=== PATIENT | female | born 1935 | race Caucasian/White ===

== ENCOUNTER 2019-03-16 15:04 | Inpatient (IN) ==
[2019-03-16] MEDS ORDERED: DUONEB (A & A) INH ONE (15:40)
--- NOTE | 2019-03-16 15:44 | PROVIDER DOCUMENTATION ---
HPI-Respiratory General - General Stated Complaint: LOW OXYGEN Time Seen by Provider: 03/16/19 15:23 Source: patient, family (daughters at bedside) Allergies/Adverse Reactions: Patient Allergies Allergy/AdvReac Type Severity Reaction Status Date / Time No Known Allergies Allergy Verified 03/16/19 16:21 Home Medications: Home Medication List Medication Instructions Recorded Confirmed Last Taken Type Omeprazole 20 mg PO QHS 07/01/12 03/16/19 03/15/19 History Metformin [Glucophage] 500 mg PO BID #0 09/23/13 03/16/19 03/16/19 Rx Aspirin 81 mg PO DAILY 05/13/15 03/16/19 03/16/19 History Atorvastatin Calcium [Lipitor] 40 mg PO HS 05/13/15 03/16/19 1 Day Ago History ~03/15/19 Clopidogrel [Plavix] 75 mg PO DAILY 05/13/15 03/16/19 03/16/19 History Metoprolol Succinate 100 mg PO BID 05/13/15 03/16/19 03/16/19 History Amlodipine Besylate [Norvasc] 5 mg PO BID 09/13/18 03/16/19 03/16/19 History Valsartan [Diovan] 0.5 tab PO QAM 09/13/18 03/16/19 03/16/19 History Lorazepam 0.5 tab PO BID 03/10/19 03/16/19 03/16/19 History Cephalexin [Keflex] 500 mg PO 4XDAY #20 cap 03/14/19 03/16/19 03/16/19 Rx Hydrocodone/Acetaminophen [[place] 1 ea PO Q4H PRN PRN #30 tab 03/14/19 03/16/19 03/16/19 Rx 7.5-325 Tablet] - History of Present Illness-Resp Nature of Presenting Problem: 83 YO F pmh for COPD, lung CA with mets to bone and recent ortho surgery in right femur 3 days ago presents to ED by EMS for low o2. Pt states home health nurse came to check on her for a dressing change, but when she checked her vitals, she had low o2 and called EMS. Pt states she cannot recall what the oxygen level reading was. Pt is currently denying cough, sore throat, fever, n/v, urinary complaints, or oozing from wounds. Quality of Pain: reports: other (pain to right leg consistent with recent surgery. denies pain to chest or abdomen) Severity in ED: reports: mild Onset/Duration: reports: 1-3 hours ago (for hypoxia) Timing: reports: still present Context: reports: other (hx of COPD, recent surgery) Cough Quality/Degree: reports: no cough Episode Frequency: occasional episodes Current Respiratory Medication Therapy: Initiated albuterol/atrovent inhale Modifying Factors: improves with: oxygen Associated Symptoms: reports: denies symptoms. denies: cough, dizziness, fe vito/chills, flu-like symptoms, headache, hurts to breathe, hyperventilating, lightheadedness, shortness of breath, short of breath, sore throat, wheezing Recently seen or treated by another doctor?: Yes (surgery 3 days ago) Review of Systems - Adult - REVIEW OF SYSTEMS - ADULT Constitutional: denies: chills, fever Eyes: reports: no symptoms reported Ears, Nose, Mouth & Throat: reports: no symptoms reported Cardiovascular: denies: chest pain, palpitations Respiratory: denies: cough, dyspnea on exertion, hemoptysis, pleurisy, shortness of breath, wheezing Gastrointestinal: denies: abdominal pain, constipation, diarrhea, nausea, poor appetite Genitourinary: reports: no symptoms reported Musculoskeletal: reports: no symptoms reported Integumentary: reports: no symptoms reported Neurological: denies: dizziness/vertigo, seizure, syncope Past History - Adult - PAST MEDICAL HISTORY-ADULT Review of Records: reports: Old Records Reviewed, Social history reviewed & non- contributory. Major Childhood Illnesses: reports: denies history Cardiovascular: reports: A-Fib, HTN, heart valve problem (replaced) Respiratory: reports: COPD Neurological: reports: CVA (2008), stroke deficits (mild left sided weakness) Endocrine/Immune: reports: Diabetes - PRIOR SURGERIES/PROCEDURES Surgical/Procedure History: reports: appendectomy, bowel surgery (partial colectomy), orthopedic (extremity) (ej placed 2/2 to mets to bone from lung CA) , other (heart valve replacement) - FAMILY HISTORY Family History: reviewed, not pertinent Physical Exam-General - PHYSICAL EXAM-ADULT Initial Vital Signs Reviewed: Yes - CONSTITUTIONAL General Appearance: appears well, alert, no apparent distress - EYES Eyes: PERRL/EOMI, pink conjunctivae - HEAD, EARS, NOSE, MOUTH & THROAT HENMT: normocephalic/atraumatic, moist mucous membranes - NECK Neck: full range of motion, supple - RESPIRATORY Respiratory: lungs clear, normal breath sounds, no respiratory distress, no accessory muscle use - CARDIOVASCULAR Cardiovascular: no edema, irregularly irregular - GASTROINTESTINAL (ABDOMEN) Abdominal Exam: normal bowel sounds, non tender, soft - SKIN Integumentary: normal color, normal turgor, warm/dry - NEUROLOGIC Neurologic: grossly normal, sensory deficit (left sided residual weakness from CVA recent right femur surgery (ortho)) - PSYCHIATRIC Psych/Mental Status: normal mood/affect, normal thought content, normal thought process, oriented x 3 (pt oriented) - HEART Score HEART Score: History: Slightly Suspicious HEART Score: ECG: Normal HEART Score: Age: > or = 65 Years HEART Score: Risk Factors for Atherosclerotic Disease: 1 or 2 Risk Factors HEART Score: Troponin: < or = Normal Limit Total HEART Score:: 3 Progress - PLAN OF CARE/RESULTS Progress/Plan/Lab Results: Vital Signs - 8 hr 03/16/19 15:35 03/16/19 15:37 03/16/19 15:43 Temperature 98.8 F Pulse Rate 99 H 96 H 75 Respiratory Rate 16 18 20 Blood Pressure 122/64 122/64 122/64 O2 Sat by Pulse Oximetry 87 L 90 L 94 L 03/16/19 15:45 03/16/19 15:46 03/16/19 16:00 Temperature Pulse Rate 101 H 90 107 H Respiratory Rate 17 26 H 14 Blood Pressure 104/60 O2 Sat by Pulse Oximetry 95 94 L 95 03/16/19 16:02 03/16/19 16:15 03/16/19 16:17 Temperature Pulse Rate 99 H 100 H 84 Respiratory Rate 16 15 14 Blood Pressure 120/56 O2 Sat by Pulse Oximetry 95 96 96 03/16/19 16:30 03/16/19 16:32 03/16/19 16:59 Temperature 98 F Pulse Rate 88 87 101 H Respiratory Rate 14 13 20 Blood Pressure 119/71 119/71 O2 Sat by Pulse Oximetry 95 95 88 L 03/16/19 17:02 03/16/19 17:32 03/16/19 18:00 Temperature Pulse Rate 105 H 85 116 H Respiratory Rate 14 17 17 Blood Pressure 116/73 115/73 O2 Sat by Pulse Oximetry 89 L 88 L 85 L 03/16/19 18:02 03/16/19 18:15 03/16/19 18:56 Temperature Pulse Rate 105 H 99 H 113 H Respiratory Rate 16 22 23 Blood Pressure 106/67 O2 Sat by Pulse Oximetry 85 L 89 L 86 L 03/16/19 19:00 03/16/19 19:15 03/16/19 19:30 Temperature Pulse Rate 100 H 131 H 120 H Respiratory Rate 22 19 22 Blood Pressure O2 Sat by Pulse Oximetry 87 L 87 L 86 L 03/16/19 19:45 Temperature Pulse Rate 111 H Respiratory Rate 19 Blood Pressure 106/82 O2 Sat by Pulse Oximetry 87 L Laboratory Results - last 24 hr 03/16/19 03/16/19 03/16/19 15:45 15:45 15:45 WBC 11.29 H RBC 3.22 L Hgb 9.0 L Hct 27.6 L MCV 85.7 MCH 28.0 MCHC 32.6 L RDW Std Deviation 14.9 H Plt Count 225 MPV 9.5 Immature Gran % (Auto) 0.2 Neut % (Auto) 71.9 Lymph % (Auto) 9.9 L [place] % (Auto) 16.7 H Eos % (Auto) 1.1 Baso % (Auto) 0.2 Immature Gran # (Auto) 0.02 Neut # (Auto) 8.13 H Lymph # (Auto) 1.12 L [place] # (Auto) 1.88 H Eos # (Auto) 0.12 Baso # (Auto) 0.02 D-Dimer, Quantitative Sodium 133 L Potassium 4.6 Chloride 94 L Carbon Dioxide 24 L Anion Gap 15 BUN 25 H Creatinine 0.9 Estimated GFR/1.73 m2 60 BUN/Creatinine Ratio 28 Glucose 190 H Calculated Osmolality 276 Calcium 8.7 L Total Bilirubin 0.44 AST 19 ALT 13 Alkaline Phosphatase 96 Troponin T < 0.010 Total Protein 5.9 L Albumin 3.6 Globulin 2.3 Albumin/Globulin Ratio 1.6 Urine Source Urine Color Urine Turbidity Urine pH Ur Specific [place] Urine Protein Ur Glucose (Stick) Ur Ketones (Stick) Urine Blood Urine Nitrite Urine Bilirubin Urobilinogen Dipstick Urine Leukocytes Urine WBC (Auto) Urine RBC (Auto) U Epithel Cells (Auto) Urine Bacteria (Auto) Urine Crystals Small Round Cells Urine Casts Urine Yeast-like Cells 03/16/19 03/16/19 15:45 17:54 WBC RBC Hgb Hct MCV MCH MCHC RDW Std Deviation Plt Count MPV Immature Gran % (Auto) Neut % (Auto) Lymph % (Auto) [place] % (Auto) Eos % (Auto) Baso % (Auto) Immature Gran # (Auto) Neut # (Auto) Lymph # (Auto) [place] # (Auto) Eos # (Auto) Baso # (Auto) D-Dimer, Quantitative 2.09 H Sodium Potassium Chloride Carbon Dioxide Anion Gap BUN Creatinine Estimated GFR/1.73 m2 BUN/Creatinine Ratio Glucose Calculated Osmolality Calcium Total Bilirubin AST ALT Alkaline Phosphatase Troponin T Total Protein Albumin Globulin Albumin/Globulin Ratio Urine Source CLEAN CATCH Urine Color YELLOW Urine Turbidity TURBID Urine pH 6.0 Ur Specific [place] 1.034 Urine Protein 70 A Ur Glucose (Stick) NEGATIVE Ur Ketones (Stick) TRACE A Urine Blood TRACE A Urine Nitrite NEGATIVE Urine Bilirubin NEGATIVE Urobilinogen Dipstick 4 A Urine Leukocytes LARGE A Urine WBC (Auto) TNTC A Urine RBC (Auto) <10 U Epithel Cells (Auto) >10 A Urine Bacteria (Auto) NEGATIVE Urine Crystals Not Reportable Small Round Cells Not Reportable Urine Casts Not Reportable Urine Yeast-like Cells NONE SEEN Orders Category Date Time Status [facility] Routine AdmDCTranf 03/16/19 20:38 Active Activity - Up with Assistance ORDERED Care 03/16/19 20:38 Active FSBS/Accucheck Result AC + HS Care 03/16/19 20:38 Active Intake and Output-Strict ORDERED Care 03/16/19 20:38 Active Nursing- MD Consult Request ROUTINE Care 03/16/19 20:38 Active Vital Signs Order Q6-HR ASSESS Care 03/16/19 20:38 Active Z-Document. for Tele Applied ORDERED Care 03/16/19 20:38 Completed Physician/Provider Consults Routine Cons 03/17/19 08:00 Ordered Diabetic Diet Diet 03/16/19 20:38 Active CHEST-1 VIEW [RAD] Stat Exams 03/16/19 15:[address] ANGIOGRM PULMONARY ARTERIES [CT] Stat Exams 03/16/19 16:58 Completed BASIC METABOLIC PANEL [CHEM] Routine Lab 03/17/19 06:00 Ordered CBC WITH DIFF [HEME] Routine Lab 03/17/19 06:00 Ordered CBC WITH ELECTRONIC DIFF [HEME] Stat Lab 03/16/19 15:45 Completed COMPREHENSIVE METABOLIC PANEL [CHEM] Stat Lab 03/16/19 15:45 Completed D-DIMER [COAG] Stat Lab 03/16/19 15:45 Completed FERRITIN Routine Lab 03/17/19 06:00 Ordered FOLATE Routine Lab 03/17/19 06:00 Ordered OCCULT BLOOD DIAGNOSTIC [STOOL] Stat Lab 03/16/19 19:59 Uncollected TOTAL IRON [CHEM] Routine Lab 03/17/19 06:00 Ordered TROPONIN T Stat Lab 03/16/19 15:45 Completed TSH Routine Lab 03/17/19 06:00 Ordered UA NIMS W/REFLEX CULT [URINALYSIS] Stat Lab 03/16/19 17:54 Completed UIBC W TOTAL IRON [CHEM] Routine Lab 03/17/19 06:00 Ordered URINE CULTURE [RM] Routine Lab 03/16/19 18:39 Received URINE MANUAL MICROSCOPIC [URINALYSIS] Stat Lab 03/16/19 17:54 Completed VITAMIN B12 Routine Lab 03/17/19 06:00 Ordered ATORVAstatin [Lipitor] Med 03/16/19 21:00 Active 40 mg PO HS Albuterol 2.5MG/Ipratrop 0.5MG [Duoneb (A & A)] Med 03/16/19 15:40 Discontinued 3 ml INH NOW ONE Albuterol 2.5MG/Ipratrop 0.5MG [Duoneb (A & A)] Med 03/16/19 22:00 Active 3 ml INH RTQ6H Amlodipine [Norvasc] Med 03/16/19 21:00 Active 5 mg PO BID Aspirin Med 03/17/19 09:00 Active 81 mg PO DAILY CefTRIAXONE [Rocephin] 1 gm Med 03/16/19 20:38 Active 0.9% Sodium Chloride Inj [Ns] 50 ml IV Q24H Clopidogrel [Plavix] Med 03/17/19 09:00 Active 75 mg PO DAILY Enoxaparin [Lovenox] Med 03/16/19 20:38 Active 40 mg SUBQ Q24H Furosemide [Lasix] Med 03/16/19 19:51 Discontinued 20 mg IV NOW ONE Hydrocodone/APAP 7.5 mg/325 mg [[place]-7.5] Med 03/16/19 19:52 Active 1 each PO Q4H PRN PRN Insulin Lispro [Humalog] Med 03/16/19 21:00 Active See Protocol SUBQ 0700,1100,1600,2100 Lorazepam [Ativan] Med 03/16/19 21:00 Active 0.5 mg PO BID Metoprolol Succinate E.r. [Toprol Xl] Med 03/16/19 21:00 Pending 100 mg PO BID Omeprazole [Prilosec] Med 03/16/19 21:00 Active 20 mg PO QHS Ondansetron [Zofran] Med 03/16/19 20:38 Active 4 mg IV Q4H PRN PRN Valsartan [Diovan] Med 03/17/19 09:00 Pending DOSE mg PO QAM Aerosol Treatments Routine Oth 03/16/19 15:41 Completed Aerosol Treatments Routine Oth 03/16/19 20:38 Active Aerosol Treatments Stat Oth 03/16/19 15:41 Completed Aerosol Treatments Stat Oth 03/16/19 20:38 Active Telemetry [OM.EQ] Routine Oth 03/16/19 20:38 Active EKG [EKG] Routine Ther 03/17/19 08:00 Ordered EKG [EKG] Stat Ther 03/16/19 15:40 Draft Transfer/Admit Order [TRANSFER] Routine Transfer 03/16/19 19:54 Completed not currently concerned for cardiac pathology or infection. wounds healing well from recent surgery. Hx of COPD. labs ok. satting at 86-88 % on RA. will admit for home o2 set up. Result Diagrams: 03/16/19 15:45 03/16/19 15:45 - REASSESSMENT Reassessment #1 Time Reassessed: 16:46 Status: improving (pt with clear lung sounds. CXR wnl, labs ok. Will remove o2 and monitor. pt AAOx3) Reassessment #2 Time Reassessed: 19:37 Status: unchanged - EKG 1 Time of EKG reading by physician:: 15:28 EKG Read and Signed by:: Abdoulaye Salcedo EKG Interpretation (*Must complete 3 of following elements*): Abnormal Rate: 92 Rhythm: irregularly irregular [place]: normal QRS: normal (afib, no p waves) ST Wave: non-specific ST changes Prior EKG Comparison: unchanged from prior (no sig changes from 09/16/18) - XRAY 1 XRAY Study: Chest Impression: See EMR Report (HISTORY: hypoxia TECHNIQUE: Chest single view COMPARISON: 12/03/2018 FINDINGS: The lungs are well expanded. There is scarring in the mid right lung. The heart is enlarged. The vessels are not distended. There are no infiltrates. No effusion identified. IMPRESSION: Cardiomegaly Electronically signed by Tyson Velasquez 03/16/2019 4:07 PM) - CONSULTS/PCP/HOSPITALIST Notification #1 *Consult/PCP/Hospitalist*: Dr. Spence Time Discussed: 19:40 Consult Disposition: Will see in ED Departure - Departure Date of Disposition Decision: 03/16/19 Time of Disposition Decision: 19:32 DIAGNOSIS: Hypoxia Disposition: ADMITTED INPATIENT Certified Medical Emergency: Emergent Condition: Stable - Critical Care Note This patient required my direct & personal management of CC.: No Attestation - Physician/ GLADIS Attestation The physician spent face to face time with patient:: Yes Advanced Practice Provider documentation review:: Supervising physician onsite and consulted in the evaluation and care of this patient. The physician did have a face to face encounter with the patient.
[2019-03-16 15:58] LABS: BASO# 0.02 X1000 (0.0-0.2); BASO% 0.2 % (0.0-0.8); EOS# 0.12 X1000 (0.0-0.7); EOS% 1.1 % (0.0-10.0); HEMATOCRIT 27.6 % (37.0-47.0); IMM GRAN# 0.02 X1000 (0.0-0.04); IMM GRAN% 0.2 % (0.0-0.5); LYMPH# 1.12 X1000 (1.2-3.4); LYMPH% 9.9 % (20.5-51.1); MCHC 32.6 g/dL (33-37); MCV 85.7 FL (81-99); MONO# 1.88 X1000 (0.11-0.59); MONO% 16.7 % (1.7-9.3); MPV 9.5 FL (7.4-10.4); NEUT# 8.13 X1000 (1.4-6.5); NEUT% 71.9 % (42.2-75.2); PLT 225 X1000 (130-400); RBC 3.22 XMIL (4.2-5.4); RDW 14.9 % (11.5-14.5); WBC 11.29 X1000 (4.8-10.8)
--- NOTE | 2019-03-16 16:10 | Diag Imaging Result Doc PS360 ---
EXAM: CHEST-1 VIEW HISTORY: hypoxia TECHNIQUE: Chest single view COMPARISON: 12/03/2018 FINDINGS: The lungs are well expanded. There is scarring in the mid right lung. The heart is enlarged. The vessels are not distended. There are no infiltrates. No effusion identified. IMPRESSION: Cardiomegaly Electronically signed by Tyson Velasquez 03/16/2019 4:07 PM
[2019-03-16 16:17] LABS: ALB/GLOB RATIO 1.6; ALBUMIN 3.6 g/dL (3.5-5.0); CALCIUM 8.7 mg/dL (8.8-10.2); CREATININE 0.9 mg/dL (0.5-0.9); POTASSIUM 4.6 mmol/L (3.5-5.1); TOTAL BILIRUBIN 0.44 mg/dL (0.20-1.00); TOTAL PROTEIN 5.9 g/dL (6.3-8.3)
--- NOTE | 2019-03-16 17:36 | EKG Report ---
Test Performed on : 03/16/2019 3:21:10 PM Test Reason : CP Blood Pressure : / mmHG Vent. Rate : 092 BPM Atrial Rate : 288 BPM P-R Int : 000 ms QRS Dur : 074 ms QT Int : 338 ms P-R-T Axes : 000 -05 065 degrees QTc Int : 417 ms Atrial fibrillation. Nonspecific ST abnormality Abnormal ECG When compared with ECG of 13-SEP-2018 10:42, T wave amplitude has increased in Anterior leads Unconfirmed Result
[2019-03-16 18:13] LABS: URINE SOURCE CLEAN CATCH
[2019-03-16 18:17] LABS: BILIRUBIN URINE NEGATIVE (NEGATIVE); BLOOD URINE TRACE (NEGATIVE); COLOR YELLOW; GLUCOSE URINE NEGATIVE (NEGATIVE); KETONE URINE TRACE mg/dL (NEGATIVE); LEUKOCYTES URINE LARGE (NEGATIVE); NITRITE URINE NEGATIVE (NEGATIVE); PROTEIN URINE 70 mg/dL (NEGATIVE); SP GRAVITY URINE 1.034; TURBIDITY URINE TURBID (CLEAR); UROBILINOGEN URINE 4 mg/dL (NORMAL)
[2019-03-16 18:36] LABS: UR EPITHELIAL CELLS >10 /HPF (<10); URINE BACTERIA NEGATIVE /HPF; URINE RBC <10 /HPF (<10); URINE WBC TNTC /HPF (<10)
[2019-03-16 18:38] LABS: URINE YEAST NONE SEEN
--- NOTE | 2019-03-16 19:00 | Diag Imaging Result Doc PS360 ---
EXAM: CT ANGIOGRM PULMONARY ARTERIES HISTORY: hypoxia TECHNIQUE: CT chest with intravenous contrast. Pulmonary two protocol with MIP images. COMPARISON: 09/09/2018 FINDINGS: No pleural effusions. The heart is enlarged and there is a small to moderate pericardial effusion measuring 12 mm posteriorly. No aortic aneurysm or dissection. Normal opacification of the pulmonary arteries and their major branches. There are several calcified right hilar nodes with scattered granuloma. There is scarring in the mid right lung. No consolidation. No bronchiectasis. There is vascular distention. Tiny nonspecific densities measuring only 1 to 2 mm scattered in the lungs. IMPRESSION: 1.No pulmonary emboli 2.Cardiomegaly with pericardial effusion and pulmonary edema 3.Scarring in the mid right lung This exam was performed using automated exposure control, adjustment of mA or kV according to patient size, and/or use of iterative reconstruction technique. Electronically signed by Tyson Velasquez 03/16/2019 6:57 PM
[2019-03-16] MEDS ORDERED: LASIX IV ONE (19:51)
[2019-03-16] MEDS ORDERED: LOVENOX SUBQ SCH (20:38)
[2019-03-16] MEDS ORDERED: ZOFRAN IV PRN (20:38)
[2019-03-16] MEDS ORDERED: TOPROL XL PO SCH (21:00)
[2019-03-16] MEDS ORDERED: NORVASC PO SCH (21:00)
[2019-03-16] MEDS: ROCEPHIN 1 GM in NS 50 ML IV SCH (21:30)
[2019-03-16] MEDS: PRILOSEC PO SCH (21:31)
[2019-03-16] MEDS: NORCO-7.5 PO PRN (21:31)
[2019-03-16] MEDS: LIPITOR PO SCH (21:32)
[2019-03-16] MEDS: DUONEB (A & A) INH SCH (22:00)
[2019-03-16] MEDS: ATIVAN PO SCH (23:50)
[2019-03-16] MEDS: HUMALOG SUBQ SCH (23:50)
[2019-03-17] MEDS: NORCO-7.5 PO PRN ×4 (03:19→21:37)
[2019-03-17] MEDS: DUONEB (A & A) INH SCH ×3 (03:39→22:43)
--- NOTE | 2019-03-17 05:42 | HISTORY AND PHYSICAL ---
CHIEF COMPLAINT: Low oxygen. HISTORY OF PRESENT ILLNESS: Ms. Branham is an 83-year-old female with a past medical history of COPD, lung cancer status post radiation and recent metastases to the bone with a resection of her right femur with ej placement 3 days ago. Home Health had come out and checked the patient and noted that her oxygen saturation was low. They changed the dressing and her blood pressure was low as well so they told her to come into the emergency room. She has no cough, sore throat, fever, nausea, vomiting, urinary complaints. The wounds are clean, dry and intact. On arrival, she was hypoxic but denied any overt shortness of breath. She is now saturating well, resting comfortably on 4 L nasal cannula. We will continue to monitor her and wean this. Her chest x-ray showed cardiomegaly that was increased from previous scans. A pulmonary arteriogram was also obtained. It showed no pulmonary edema. However, it did show cardiomegaly with a pericardial effusion measuring around 12 mm posteriorly as well as some pulmonary edema. The daughter states that she has had pericardial effusion in the past. At any rate, we will consult Cardiology. PAST MEDICAL HISTORY: COPD, diabetes mellitus type 2, aortic valve replacement, colon resection, lung cancer with radiation, now recent metastases to the bone, chronic atrial fibrillation. PREVIOUS SURGICAL HISTORY: Appendectomy, tonsillectomy, right femur resection with ej implantation. SOCIAL HISTORY: No current tobacco, alcohol or illicit drugs. She quit smoking in 1995. FAMILY HISTORY: Mother had a stroke and coronary artery disease. Unsure of the father's history. ALLERGIES: No known drug allergies. HOME MEDICATIONS: Keflex 500 mg p.o. 4 times daily, metformin 500 mg p.o. b.i.d., amlodipine 5 mg p.o. b.i.d., aspirin 81 mg p.o. daily, atorvastatin 40 mg p.o. at bedtime, Plavix 75 mg p.o. daily, [place] 7.5/325 q.4 p.r.n., lorazepam 0.5 mg p.o. b.i.d., metoprolol 100 mg extended release p.o. b.i.d., omeprazole 20 mg p.o. daily, valsartan 80 mg q.a.m. REVIEW OF SYSTEMS: Fourteen-point review of systems conducted with the patient. She denies complaint at this time. Pertinent positives listed above in the HPI. PHYSICAL EXAMINATION: VITAL SIGNS: Temperature 98.6, pulse 112, respirations 16, blood pressure 106/53, oxygen saturation 100% on 4 L nasal cannula. GENERAL: Pale-appearing 83-year-old female resting comfortably. She is in no acute distress. She is alert and oriented times 3. Daughter is at bedtime. HEENT: Head is atraumatic, normocephalic. Pupils equal, round, reactive to light. Extraocular eye movement is intact. Sclerae are anicteric. Conjunctiva is pale. Oral mucosa is moist. NECK: Supple. No JVD. No thyromegaly. Trachea is midline. No cervical lymphadenopathy. CARDIAC: S1, S2 appreciated. No murmurs, gallops, rubs. It is irregularly irregular. LUNGS: Mild expiratory wheezing. No rhonchi, wheezes, rales. Symmetric rise and fall with respirations. ABDOMEN: Soft, nondistended, nontender. Bowel sounds present all 4 quadrants, normoactive. No pulsatile mass. No organomegaly. EXTREMITIES: No clubbing, cyanosis or edema. Two-plus pedal pulses bilaterally. INTEGUMENTARY: Clean, dry and intact. Three incisions noted on right upper leg clean, dry and intact. Dressings are also well maintained. MUSCULOSKELETAL: Patient complains of pain in right extremity at the surgical site. Decreased range of motion in this extremity. All other extremities have full range of motion. NEUROLOGICAL: Alert and oriented times 3. Cranial nerves 2 through 12 grossly intact. DIAGNOSTIC DATA: For chest x-ray and CT scan, please see HPI. EKG shows atrial fibrillation with a rate of 92. LABORATORY DATA: WBC 11.29. Hemoglobin 9. Hematocrit 27.6. Platelet count 225. Sodium 133. Potassium 4.6. Chloride 94. Carbon dioxide 24. BUN 25. Creatinine 0.9. Glucose 190. Urine was a contaminated sample. However, it was leukocyte esterase positive with too numerous to count WBCs, but again, greater than 10 epithelial cells. ASSESSMENT AND PLAN: 1. Probable chronic obstructive pulmonary disease exacerbation. We will give Rocephin 1 g IV q.24 hours, DuoNebs. Patient did also have some pulmonary edema noted on the CT scan, gave 20 of Lasix in the emergency room. On reassessment, her wheezing had resolved. We will not continue steroids. 2. Pericardial effusion, aware. Patient does not have any signs or symptoms of tamponade. She does not have any type of friction rub. We will consult Cardiology. However, she is stable. 3. Hyperlipidemia. Continue statin. 4. Anemia. This is likely acute blood loss related to her surgery 3 days ago. It could be a cause for her shortness of breath. Her hemoglobin and hematocrit were 9 and 27.6. On last check, they were 11.5 and 35.5, so a fairly large drop. We will type and screen the patient, recheck hemoglobin and hematocrit this morning. If the patient's shortness of breath does not resolve, we will consider transfusing 1 unit of packed red blood cells. 5. Lung cancer with metastases to the bone, aware. Patient is going to undergo radiation which is set up outpatient. Further recommendations per patient clinical course. Dictated by PEPITO Samuel for Nader Spence MD I have performed a face to face diagnostic evaluation. Labs/ Xrays- reviewed. Exam- Chest- rhonchi, CV- regular. A/P - COPD Exacerbation- Admit, Duo nebs,, IV ABX Dr. Spence cc: PEPITO Samuel MD Lindsay E. Smith, MD MTDD
[2019-03-17] MEDS: HUMALOG SUBQ SCH ×4 (06:40→21:00)
[2019-03-17 07:20] LABS: BASO# 0.02 X1000 (0.0-0.2); BASO% 0.2 % (0.0-0.8); EOS# 0.07 X1000 (0.0-0.7); EOS% 0.8 % (0.0-10.0); HEMATOCRIT 26.8 % (37.0-47.0); HEMOGLOBIN 8.6 g/dL (12.0-16.0); LYMPH% 7.8 % (20.5-51.1); MCH 27.5 PG (27-31); MCHC 32.1 g/dL (33-37); MCV 85.6 FL (81-99); MONO# 1.37 X1000 (0.11-0.59); MONO% 15.3 % (1.7-9.3); MPV 9.6 FL (7.4-10.4); NEUT# 6.77 X1000 (1.4-6.5); NEUT% 75.9 % (42.2-75.2); PLT 217 X1000 (130-400); RBC 3.13 XMIL (4.2-5.4); RDW 14.7 % (11.5-14.5); WBC 8.93 X1000 (4.8-10.8)
[2019-03-17 07:25] LABS: AGAP 12; BUN 20 mg/dL (8-22); CALCIUM 8.4 mg/dL (8.8-10.2); CHLORIDE 96 mmol/L (98-107); COSMO 271; CREATININE 0.7 mg/dL (0.5-0.9); ESTIMATED GFR > 60; GLUCOSE 136 mg/dL (70-104); IRON SATURATION 9 %; SODIUM 133 mmol/L (136-145); TCO2 25 mmol/L (25-35); TIBC 270 ug/dL; TOTAL IRON 25 ug/dL (49-151); UNBOUND IRON 245 ug/dL (112-346)
--- NOTE | 2019-03-17 07:47 | EKG Report ---
Test Performed on : 03/17/2019 07:02:11 AM Test Reason : chest pain Blood Pressure : / mmHG Vent. Rate : 113 BPM Atrial Rate : 133 BPM P-R Int : 000 ms QRS Dur : 094 ms QT Int : 286 ms P-R-T Axes : 000 -03 081 degrees QTc Int : 392 ms Atrial fibrillation. with rapid ventricular response. with premature ventricular or aberrantly conduc matt complexes. Anterior infarct , age undetermined Abnormal ECG When compared with ECG of 16-MAR-2019 15:21, (Unconfirmed) No significant change was found Confirmed by Joel TURNER, Fidel Sidhu ([id number]) on 03/17/2019 8:57:56 AM
[2019-03-17 07:58] LABS: TSH 1.15 uIUmL (0.27-4.20)
[2019-03-17] MEDS ORDERED: DIOVAN PO SCH (09:00)
[2019-03-17] MEDS: LOPRESSOR PO SCH ×2 (10:06→21:37)
[2019-03-17] MEDS: MIRALAX PO SCH ×2 (10:06→21:38)
[2019-03-17] MEDS: ATIVAN PO SCH ×2 (10:07→21:38)
[2019-03-17] MEDS: PLAVIX PO SCH (10:07)
[2019-03-17] MEDS: ASPIRIN PO SCH (10:07)
--- NOTE | 2019-03-17 12:34 | CARDIOLOGY CONSULTATION ---
DATE: 03/17/2019 CHIEF COMPLAINT ON PRESENTATION: Apparently dyspnea, abnormal laboratories. HISTORY OF PRESENT ILLNESS: Ms. Branham is an 83-year-old white female with a history of chronic atrial fibrillation, metastatic lung cancer, previous aortic valve replacement. She presents for evaluation of apparent weakness. She recently had a ej placed in her femur secondary to a metastatic lesion being identified there. This was done last week. She had home health on the who came in for dressing changes and noted that she had lab abnormalities. It is unclear what these were, but it sounds like at some point she may have been hypoxic. She was referred to the ER and subsequently had a pulmonary arteriogram, which demonstrated a pericardial effusion. She had no pulmonary emboli on that study. PAST MEDICAL HISTORY: 1. Significant for coronary disease. Her last cardiac catheterization identified a normal left main, a proximal 70% lesion in her LAD, and normal circumflex and a normal RCA. That was done in evaluation of a TAVR. 2. Aortic stenosis, status post TAVR in 2013 at [facility]. 3. COPD. 4. Pulmonary fibrosis. 5. Atrial fibrillation, not currently on anticoagulation secondary to GI bleeding. 6. History of pericardial effusion that was small compared to previous study and documented per previous study in 2017. 7. Hypertension. 8. Hyperlipidemia. 9. Peripheral vascular disease. 10. Lung cancer. Currently, she has only been treated with radiation. SOCIAL HISTORY: No current tobacco, alcohol, or illicit drugs. Quit smoking in . FAMILY HISTORY: Mother had a stroke and coronary disease. REVIEW OF SYSTEMS: A 10-system review of systems is negative except for those things mentioned in HPI. PHYSICAL EXAMINATION: Vital Signs: She is afebrile. Heart rates 61, blood pressure 101/72. General: She is in no acute distress. HEENT: Oropharynx is moist. Poor dentition. Eye examination is pink conjunctivae. White sclerae. Neck: Examination shows no obvious thyromegaly or thyroid tenderness. Cardiovascular: She sounds to be in an irregularly irregular rhythm. She has no obvious murmurs. There did sound to be a rub auscultated. She had no S3. She has no lower extremity edema. Chest: Exam sounds clear to auscultation bilaterally. She has no increased work of breathing. Abdomen: Soft, nontender, nondistended. She has no obvious organomegaly. Skin: Warm and dry throughout without any rashes. Neurological: Moving all extremities well. She has no lateralizing deficits. PERTINENT DATA: Her EKG on the at 1521 hours shows atrial fibrillation. She does have some evidence suggestive of electrical alternans on that study. Her subsequent EKG occurring on the at 0702 hours shows sinus rhythm. Again, some evidence identified for electrical alternans. PVC or aberrantly conducted beat is also noted. Her pulmonary arteriogram was reviewed. Her laboratory data shows a white count 8.9, hematocrit 26, her platelet count is 165,000. Her sodium is 133, potassium 4, BUN 20 and creatinine 0.7. Her albumin is 3.6. ASSESSMENT: Ms. Branham is an 83-year-old female who presented with vital sign abnormalities and dyspnea. PLAN: We will evaluate the pericardial effusion by echocardiogram. Further recommendations to follow. Her TSH was normal. This has a highly likelihood of being a malignant effusion. I have discussed the options of possible pericardiocentesis versus pericardial window. We are currently pending the echocardiogram to determine course of action. ADDENDUM: Echo was reviewed. Patient is noted to have a small pericardial effusion with no apparent tamponade physiology. BP is stable. Echo from 2017 was reviewed and shows a similar sized pericardial effusion. For now I would not recommend any intervention on the effusion and would rec re-evaluation in the near future. cc: Dallas Redd MD MTDD
--- NOTE | 2019-03-17 13:47 | ECHO REPORT ---
ORDER DATE: 03/17/2019 ECHOCARDIOGRAPHIC MEASUREMENTS: 1. Interventricular septum 1.1. 2. Left ventricular posterior wall 1.0. 3. Diastolic diameter 3.6. 4. Left atrium 4.5. SUMMARY: 1. Normal left ventricular cavity size. Estimated ejection fraction of 60%. 2. Atrial fibrillation was noted. 3. Bioprosthetic valve in the aortic position was stable. 4. Mitral valve was normal. 5. Tricuspid valve was normal. 6. Technically suboptimal study. 7. Pulmonic valve was normal. There is trace pulmonary regurgitation. Peak velocity across the aortic valve was 2.6 m/sec. Mean gradient of 15 mmHg. 8. Aortic valve area by VTI was 1.5 cm2 in keeping with bioprosthetic valve. 9. There is mild mitral regurgitation. 10. Mild tricuspid regurgitation. Peak velocity across the tricuspid valve was 3 m/sec. 11. Pulmonary artery systolic pressure of 50 mmHg. 12. There is biatrial enlargement. 13. There is small anterior echo-free space, and a small to moderate posterior echo-free space with history of pericardial effusion. There is no evidence of tamponade. cc: MD Christelle Mortensen PA
[2019-03-17 14:08] LABS: HEMOGLOBIN A1C 6.9 % (4.8-6.0)
--- NOTE | 2019-03-17 14:19 | PROGRESS NOTE ---
DATE: 03/17/2019 INTERVAL HISTORY: The patient remains in atrial fibrillation. Some elevated heart rate this morning. Has not yet had her Toprol, so that may be the cause there. The patient is asymptomatic with it. Her dyspnea is markedly improved, as is her oxygenation. No new complaints. No acute events overnight. REVIEW OF SYSTEMS: A 12-point review of systems is negative, except as per interval history. LABORATORY DATA: WBC 8.9, hemoglobin 8.6, hematocrit 26.8, platelets 217,000. Sodium 133, potassium 4, bicarb 25, BUN 20, creatinine 0.7, glucose 136 to 179. OBJECTIVE: Vital Signs: T-max 98.8 degrees, pulse 68, respirations 16, blood pressure 101/72, O2 saturation 95% on 4 L by nasal cannula. General: No acute distress. HEENT: Normocephalic, atraumatic. Moist mucous membranes. No cervical adenopathy. Cardiovascular: Tachycardic and irregular at the time of my exam. No murmurs noted. Pulmonary: Minimally decreased air entry throughout. No wheezing. Really largely clear to auscultation. Abdomen: Soft, nontender, nondistended. Bowel sounds positive. Extremities: Peripheral pulses intact. No clubbing, cyanosis. Neurologic: Cranial nerves grossly intact. Mild global weakness, but no focal deficits identified. Psychiatric: Normal mood and affect. Awake, alert, oriented x3. Skin: No new rashes or lesions identified. ASSESSMENT AND PLAN: 1. Acute hypoxic respiratory failure, probable chronic obstructive pulmonary disease exacerbation. Patient with marked improvement with DuoNebs, Lasix, and steroids. Given rapid resolution of wheezing, steroids were not continued past the initial dose. Wheezing remains resolved, so no plans to start that. Will continue DuoNebs as she says they give her significant relief. This really appears to be improving rapidly, so may be able to go home tomorrow if other issues resolve. 2. Pericardial effusion. No signs or symptoms of tamponade, but discussed with Cardiology, and it is a fairly large effusion. Awaiting further recommendations from them as to whether she will need further intervention. 3. Hyperlipidemia. Continue home statin. 4. Anemia. May be related to recent surgery. The patient denies any signs or symptoms of active bleeding. Minimal decrease from admission this morning, so will continue to monitor, but no need for transfusion at this time. 5. Diabetes. Acceptable control on current regimen. Monitor. 6. Atrial fibrillation. Heart rate is a little elevated this morning, but she had not yet gotten her Lopressor. After Lopressor dose, heart rate appears to be much improved. Will monitor. Cardiology following. 7. Hyponatremia, mild, asymptomatic. Monitor. 8. Elevated D-dimer. CTA without pulmonary embolism. No significant leg edema to suggest deep venous thrombosis. 9. Lung cancer with bony metastasis. Aware.
[2019-03-17] MEDS: ROCEPHIN 1 GM in NS 50 ML IV SCH (21:37)
[2019-03-17] MEDS: LIPITOR PO SCH (21:37)
[2019-03-17] MEDS: PRILOSEC PO SCH (21:38)
[2019-03-18] MEDS: DUONEB (A & A) INH SCH ×5 (03:28→21:25)
[2019-03-18] MEDS: NORCO-7.5 PO PRN ×3 (05:34→16:34)
[2019-03-18 07:00] LABS: BASO# 0.01 X1000 (0.0-0.2); BASO% 0.1 % (0.0-0.8); EOS% 1.1 % (0.0-10.0); HEMATOCRIT 28.1 % (37.0-47.0); HEMOGLOBIN 8.7 g/dL (12.0-16.0); IMM GRAN# 0.02 X1000 (0.0-0.04); IMM GRAN% 0.2 % (0.0-0.5); LYMPH% 6.8 % (20.5-51.1); MCH 27.2 PG (27-31); MCV 87.8 FL (81-99); MONO# 0.97 X1000 (0.11-0.59); MONO% 11.1 % (1.7-9.3); MPV 9.6 FL (7.4-10.4); NEUT# 7.06 X1000 (1.4-6.5); NEUT% 80.7 % (42.2-75.2); PLT 234 X1000 (130-400); RDW 14.8 % (11.5-14.5); WBC 8.76 X1000 (4.8-10.8)
[2019-03-18] MEDS: HUMALOG SUBQ SCH ×4 (07:00→22:41)
[2019-03-18 07:23] LABS: AGAP 11; BUN 20 mg/dL (8-22); CALCIUM 8.7 mg/dL (8.8-10.2); CHLORIDE 98 mmol/L (98-107); COSMO 280; CREATININE 0.7 mg/dL (0.5-0.9); ESTIMATED GFR > 60; GLUCOSE 155 mg/dL (70-104); POTASSIUM 4.5 mmol/L (3.5-5.1); SODIUM 137 mmol/L (136-145); TCO2 28 mmol/L (25-35)
[2019-03-18] MEDS ORDERED: FLU VACCINE IM ONE (08:29)
[2019-03-18] MEDS: LASIX IV SCH (09:42)
[2019-03-18] MEDS: PLAVIX PO SCH (09:42)
[2019-03-18] MEDS: ATIVAN PO SCH ×2 (09:43→20:29)
[2019-03-18] MEDS: ASPIRIN PO SCH (09:44)
[2019-03-18] MEDS: LOPRESSOR PO SCH ×2 (09:44→20:29)
[2019-03-18] MEDS: MIRALAX PO SCH ×2 (11:30→20:29)
[2019-03-18] MEDS ORDERED: DULCOLAX PR ONE (11:59)
--- NOTE | 2019-03-18 13:57 | PROGRESS NOTE ---
DATE: 03/18/2019 SUBJECTIVE: The patient seems to be feeling better today, she does have some pleural effusion which is likely due to malignancy, she has a history of metastatic lung cancer, to the bones and recently she had a metastatic lesion in the midshaft of the right femur and a prophylactic fixation of the right femur with titanium trochanteric fixation nail system, TFN was placed, that procedure was done on 03/14/2019, as per the family she has not been able to walk or do too much physical activity at home, and it has been a few days with this kind of problems. I have requested physical therapy to evaluate this patient. Probably this patient will need to go to a rehab center. The family is concerned about radiation in that area, but interestingly, they do not have a primary oncologist, which I have consulted, also I will add Dulcolax suppository x 1 to her medications. OBJECTIVE: Vital Signs: Temperature 99.2 degrees, pulse 93, respiratory rate 14, blood pressure 100/57, oxygen saturation 97% on 3 L of nasal cannula. HEENT: Head normocephalic, no trauma. PERRLA. Neck: Supple. Chest: Decreased breath sounds globally with prolonged expiratory phase with some crepitus and faint expiratory wheezing. Abdomen: Soft, nontender, nondistended. No hepatosplenomegaly. Extremities: No edema, no clubbing, no cyanosis. She does have a postoperative dressing at the level of the right thigh. She is able to move her toes and I do not see any neurovascular lesion. Neurological: The patient is alert. She is oriented x3. She moves all 4 extremities. LABORATORY: WBC 8.7, hemoglobin 8.7, hematocrit 28.1, platelets 234,000. Sodium 137, potassium 4.5, chloride 98, bicarbonate 28, BUN 20, creatinine 0.7, glucose 155, calcium 8.7. ASSESSMENT AND PLAN: 1. Acute hypoxemic respiratory failure in a patient with lung cancer and possible COPD exacerbation. She has been improving with breathing treatment and oxygen supplementation, we will continue with the same management for now. 2. Pericardial effusion, an echocardiogram has been done already. Cardiology Department will place their recommendations. I do not think they are going to be doing any kind of aggressive procedure at this moment since she is not on tamponade. I do believe the pleural effusion is about the same compared with before. 3. Hyperlipidemia. Continue with statins. 4. Anemia, stable. 5. Diabetes. We will continue with same management for now. 6. Atrial fibrillation, rate controlled. 7. Hyponatremia, resolved. 8. Elevated D-dimer. CT angiogram with no pulmonary embolism, no significant leg edema to suggest DVT or pain, probably the elevated D-dimer is related to recent surgery. 9. Lung cancer with bony metastasis, apparently she has been getting only radiation, no chemotherapy. She does not have a primary oncologist and I will request an evaluation by Dr. August. 10. Generalized weakness and physical deconditioning. I have requested physical therapy and occupational therapy. 11. Probably this patient will need to go to a rehab center and/or home with physical therapy, family is concerned about going home with this patient since she is not able to walk by herself or move too much by herself. She has not been able to walk for the past few days. I will wait for Oncology Department recommendations to see what we can do for her. cc: Marshall Sagastume MD
[2019-03-18] MEDS: ROCEPHIN 1 GM in NS 50 ML IV SCH (20:21)
[2019-03-18] MEDS: PRILOSEC PO SCH (20:28)
[2019-03-18] MEDS: LIPITOR PO SCH (20:29)
[2019-03-18] MEDS ORDERED: LOPRESSOR IV ONE (21:17)
[2019-03-18] MEDS ORDERED: OFIRMEV 1000 MG/ISOTONIC SOLN 1,000 MG/100 ML BOTTLE IV ONE (21:18)
--- NOTE | 2019-03-18 22:43 | CARDIOLOGY PROGRESS NOTE ---
DATE: 03/18/2019 SUBJECTIVE: Ms. Branham reports continued right leg pain as well as some cough. PHYSICAL: Vital signs: A febrile. Heart rate 90, blood pressure 102/62. Generally: She is in no acute distress. Cardiovascular: She sounds to be in a regular rate and rhythm. I did not hear any obvious murmurs. She has no lower extremity edema. Chest: Her chest exam has some mild coarseness of her breath sounds as well as some mild expiratory wheezes. She has no increased work of breathing. Abdomen: Her abdomen is soft, nontender. PERTINENT DATA: Her echo was noted from yesterday. Her laboratory data shows a white count of 8.7, hematocrit 28, platelet count 234,000. Sodium 137, potassium 4.5, BUN 20, creatinine 0.7. ASSESSMENT: Ms. Branham is an 83-year-old female with a lung malignancy. She has evidence for pericardial effusion as well. PLAN: At this point, her echo does not demonstrate any evidence of tamponade. Her echo did not appear significantly worsened from her 2017 echo. At this point, I would recommend repeating the echo in roughly 1 week's time whether she is an inpatient or outpatient to track the size of the effusion. Presently, I have no acute recommendations. cc: Dallas Redd MD
[2019-03-19] MEDS: NORCO-7.5 PO PRN ×4 (01:05→18:38)
[2019-03-19] MEDS: DUONEB (A & A) INH SCH ×4 (03:33→22:59)
[2019-03-19 07:13] LABS: BASO# 0.01 X1000 (0.0-0.2); BASO% 0.1 % (0.0-0.8); HEMATOCRIT 29.5 % (37.0-47.0); HEMOGLOBIN 9.2 g/dL (12.0-16.0); LYMPH% 2.9 % (20.5-51.1); MCH 27.4 PG (27-31); MCHC 31.2 g/dL (33-37); MCV 87.8 FL (81-99); MONO# 1.21 X1000 (0.11-0.59); MONO% 11.7 % (1.7-9.3); MPV 9.6 FL (7.4-10.4); NEUT# 8.82 X1000 (1.4-6.5); NEUT% 85.3 % (42.2-75.2); PLT 259 X1000 (130-400); RBC 3.36 XMIL (4.2-5.4); RDW 14.8 % (11.5-14.5); WBC 10.34 X1000 (4.8-10.8)
[2019-03-19 07:36] LABS: AGAP 13; BUN 20 mg/dL (8-22); CALCIUM 8.6 mg/dL (8.8-10.2); CHLORIDE 96 mmol/L (98-107); COSMO 280; CREATININE 0.7 mg/dL (0.5-0.9); ESTIMATED GFR > 60; GLUCOSE 202 mg/dL (70-104); POTASSIUM 4.6 mmol/L (3.5-5.1); SODIUM 136 mmol/L (136-145); TCO2 27 mmol/L (25-35)
[2019-03-19] MEDS ORDERED: TYLENOL PO PRN (08:17)
--- NOTE | 2019-03-19 08:44 | Diag Imaging Result Doc PS360 ---
CHEST-PORTABLE - 03/19/2019 INDICATION: SOB COMPARISON: 03/16/2019 FINDINGS: There has been substantial increase in the density of the right hilar infiltrate. There is probably some faint infiltrate or atelectasis in the right lung base as well. Stable severe cardiomegaly. Pulmonary vascularity is slightly distended. Stable aortic valve replacement. IMPRESSION: Worsening right hilar and basilar infiltrate. Electronically signed by Sumanth Cano 03/19/2019 8:42 AM
[2019-03-19] MEDS ORDERED: DULCOLAX PR ONE (09:00)
[2019-03-19] MEDS: LOPRESSOR PO SCH ×2 (09:16→21:32)
[2019-03-19] MEDS: PLAVIX PO SCH (09:16)
[2019-03-19] MEDS: ASPIRIN PO SCH (09:16)
[2019-03-19] MEDS: ATIVAN PO SCH ×2 (09:16→21:32)
[2019-03-19] MEDS: LASIX IV SCH (09:17)
[2019-03-19] MEDS: MIRALAX PO SCH (09:18)
[2019-03-19] MEDS ORDERED: ZOSYN ONE (09:24)
[2019-03-19 09:29] LABS: BANDS 4 % (0-1); LYMPHS 4 % (21-51); MONO 2 % (1-9); SEGS 90 % (42-75)
[2019-03-19] MEDS: ZOSYN 3.375 GM in NS 50 ML IV SCH ×4 (09:35→21:33)
[2019-03-19] MEDS: HUMALOG SUBQ SCH ×3 (11:40→21:21)
--- NOTE | 2019-03-19 13:21 | PROGRESS NOTE ---
DATE: 03/19/2019 SUBJECTIVE: This patient seems to be resting comfortably in bed. She is not complaining of pain, but she has been having cough, and green phlegm is coming up. X-ray showed a worsening infiltrate on the right side. She does have pneumonia and UTI. Microbiology showed gram-negative rods in the urine. Blood cultures so far are negative. Pending a sputum culture. I will stop the ceftriaxone, and I have placed this patient on Zosyn, and I will monitor. OBJECTIVE: Vital Signs: Temperature 99.1 degrees, pulse 97, respiratory rate 16, blood pressure 101/45, oxygen saturation 96 on 3 L of nasal cannula. HEENT: Head normocephalic. No trauma. PERRLA. Neck: Supple. No JVD. No masses. Central trachea. Chest: Decreased breath sounds globally with prolonged expiratory phase. Crepitus and rhonchi at the right base. Abdomen: Soft, nontender, nondistended. No hepatosplenomegaly. Extremities: No edema, no clubbing, no cyanosis. She does have a postoperative dressing at the level of the right thigh. She is able to move all her toes. I do not see any neurovascular lesion. Neurological: She is alert. She is oriented x3. No focal deficits, but weakness. LABORATORY DATA: WBC 10.3, hemoglobin 9.2, hematocrit 29.5, platelets 259,000. Sodium 136, potassium 4.6, chloride 96, bicarbonate 27, BUN 20, creatinine 0.7, glucose 202, calcium 8.6. ASSESSMENT AND PLAN: 1. Acute hypoxemic respiratory failure in a patient with lung cancer, possible chronic obstructive pulmonary disease exacerbation, and right lower lobe pneumonia. Continue with antibiotics, which I will change from ceftriaxone to Zosyn. Continue with oxygen supplementation and breathing treatment. 2. Pericardial effusion. Echocardiogram has been done already. Cardiology Department will just monitor this patient closely, but no intervention at this moment. 3. Urinary tract infection with a positive culture that showed gram-negative rods. Continue with antibiotics. 4. Hyperlipidemia. Continue with statins. 5. Anemia, stable. 6. Diabetes. Continue with the same management for now. 7. Atrial fibrillation. Continue with the same treatment. 8. Hyponatremia, resolved. 9. Elevated D-dimer. CT angiogram did not show any pulmonary embolism. There is not significant leg edema that suggests deep venous thrombosis or pain. Probably, the elevated D-dimer was related to recent surgery. 10. Lung cancer with bony metastasis. Apparently, she has been getting only radiation. I have requested an evaluation by Hematology/Oncology Department. 11. Generalized weakness and physical deconditioning. Continue physical therapy. She was able to sit in bed yesterday. Today, the goal is to stand her up. 12. Likely this patient will need to go to rehab center. I have requested blood culture and sputum culture. She is septic. 13. Sepsis, likely secondary to both pneumonia and urinary tract infection. Continue with broad- spectrum antibiotics, and will continue with the same management. cc: Marshall Sagastume MD
[2019-03-19] MEDS: PRILOSEC PO SCH (21:32)
[2019-03-19] MEDS: LIPITOR PO SCH (21:33)
[2019-03-20] MEDS: NORCO-7.5 PO PRN ×3 (01:05→14:47)
[2019-03-20] MEDS: DUONEB (A & A) INH SCH ×4 (03:13→19:03)
[2019-03-20] MEDS: ZOSYN 3.375 GM in NS 50 ML IV SCH ×2 (03:36→09:27)
[2019-03-20 09:05] LABS: BASO# 0.01 X1000 (0.0-0.2); BASO% 0.1 % (0.0-0.8); EOS# 0.14 X1000 (0.0-0.7); EOS% 1.6 % (0.0-10.0); HEMOGLOBIN 9.2 g/dL (12.0-16.0); IMM GRAN# 0.02 X1000 (0.0-0.04); IMM GRAN% 0.2 % (0.0-0.5); LYMPH# 0.58 X1000 (1.2-3.4); LYMPH% 6.7 % (20.5-51.1); MCH 27.2 PG (27-31); MCHC 30.7 g/dL (33-37); MCV 88.8 FL (81-99); MONO# 0.99 X1000 (0.11-0.59); MONO% 11.4 % (1.7-9.3); MPV 9.4 FL (7.4-10.4); NEUT# 6.96 X1000 (1.4-6.5); PLT 271 X1000 (130-400); RBC 3.38 XMIL (4.2-5.4); RDW 14.9 % (11.5-14.5)
[2019-03-20 09:23] LABS: AGAP 15; BUN 28 mg/dL (8-22); CALCIUM 8.9 mg/dL (8.8-10.2); CHLORIDE 94 mmol/L (98-107); COSMO 281; CREATININE 0.8 mg/dL (0.5-0.9); ESTIMATED GFR > 60; GLUCOSE 155 mg/dL (70-104); SODIUM 136 mmol/L (136-145); TCO2 27 mmol/L (25-35)
[2019-03-20] MEDS: ATIVAN PO SCH ×2 (09:24→20:51)
[2019-03-20] MEDS: ASPIRIN PO SCH (09:25)
[2019-03-20] MEDS: PLAVIX PO SCH (09:25)
[2019-03-20] MEDS: LOPRESSOR PO SCH ×2 (09:25→20:51)
[2019-03-20] MEDS: LASIX IV SCH ×2 (09:26→11:45)
[2019-03-20] MEDS: HUMALOG SUBQ SCH ×5 (12:00→20:50)
[2019-03-20] MEDS: MYCOSTATIN SUSP PO SCH ×3 (12:44→20:51)
[2019-03-20] MEDS: MAXIPIME 1 GM in NS 50 ML IV SCH ×2 (12:44→20:52)
--- NOTE | 2019-03-20 14:18 | CARDIOLOGY PROGRESS NOTE ---
DATE: 03/20/2019 SUBJECTIVE: Ms. Branham continues to be in the hospital. She has no pain complaints. She is somewhat sleepy. PHYSICAL EXAMINATION: Vital Signs: The patient is afebrile. Heart rate of 95. Blood pressure is 82/52. General: She is in no acute distress. Cardiovascular: She sounds to be in a regular rate and rhythm. She has no obvious murmurs. She has no S3. She has no lower extremity edema. Chest: Exam sounds relatively clear. She has no increased work of breathing. Abdomen: Soft, nontender. PERTINENT DATA: White count 8.7, hematocrit 30, platelet count is 271. Her sodium is 136, potassium 4, BUN 28, creatinine 0.8. ASSESSMENT: Ms. Branham is an 83-year-old female, who presented with pericardial effusion. She is being treated for pneumonia. PLAN: Notably she was febrile yesterday. She is on antibiotics. We will check a limited echocardiogram to evaluate the pericardial effusion in comparison to the study on the . No further recommendations at this time. We will await the results of the upcoming testing. Notably, I reviewed her pathology results from her right hip, and it does not seem to demonstrate any evidence of metastatic carcinoma. cc: Dallas Redd MD
--- NOTE | 2019-03-20 14:50 | HEMO/ONC CONSULTATION ---
DATE: 03/19/2019 ADMITTING PHYSICIAN: Dr. Nader Spence. REQUESTING PHYSICIAN: Dr. Nader Spence. We appreciate this consult. CHIEF COMPLAINT: Lung cancer with bone metastasis. HISTORY OF PRESENT ILLNESS: Ms. Branham is a pleasant, 83-year-old, female with a history of COPD, lung cancer status post radiation, diabetes mellitus type 2, aortic valve replacement, chronic atrial fibrillation. The patient was recently diagnosed with metastasis to her right femur. She had a ej placement [address] Ferguson. The patient presented to [facility] Emergency Department with hypotension and low oxygen saturation. Additionally, in the emergency department, the patient was found to have a pericardial effusion with worsening cardiomegaly. The patient is admitted for evaluation. We are consulted secondary to history of lung cancer, now with bony metastasis. PAST MEDICAL HISTORY: As in HPI. PAST SURGICAL HISTORY: 1. Appendectomy. 2. Tonsillectomy. 3. Right femur resection with ej implantation. SOCIAL HISTORY: The patient does not use tobacco, alcohol, or illicit drugs. She quit smoking in 1995. FAMILY HISTORY: Negative for any hematologic or oncologic disease. MEDICATIONS ON ADMISSION: 1. Keflex. 2. Metformin. 3. Amlodipine. 4. Aspirin. 5. Atorvastatin. 6. Plavix. 7. [place]. 8. Lorazepam. 9. Metoprolol. 10. Omeprazole. 11. Valsartan. ALLERGIES: The patient has no known drug allergies. REVIEW OF SYSTEMS: A 14-point review of systems was obtained and is negative, except for mentioned in the HPI. PHYSICAL EXAMINATION: General: Ms. Branham is a pleasant, 83-year-old female, lying supine in bed, somewhat somnolent, but otherwise in no apparent distress. Vital Signs: Temperature 98.9 degrees, blood pressure 115/52, heart rate 130, respirations are 20, O2 saturation 95% on 4 L nasal cannula O2. HEENT: Normocephalic, atraumatic. Mucous membranes are slightly pale and moist. Sclerae is anicteric. Extraocular movements intact. Neck: Supple. Lungs: Clear to auscultation bilaterally. Chest expansion equal bilaterally. CV: S1, S2 is heard. The patient is tachycardic. Abdomen: Soft, nondistended, nontender. Bowel sounds are positive in all quadrants. No rebound or guarding noted. Extremities: Without clubbing, cyanosis, or edema. Dermatologic: No rashes or lesions. The patient does have a large bruise over the surgical site to her right femur. Neurologic: The patient is somnolent. She is oriented x3. She has no focal motor deficit. ASSESSMENT AND PLAN: 1. Metastatic lung cancer to the bone. The patient has a history of lung cancer diagnosed approximately 1 year ago. She underwent radiation therapy with Dr. Tate, and now presents with probable bony metastasis. The patient's family reports that she had no lung biopsy at the time of the diagnosis of lung cancer due to multiple comorbidities. We will obtain complete history from Dr. Tate. We will evaluate if the patient may benefit from immunotherapy, if her present condition improves. 2. Acute hypoxemic respiratory failure secondary to #1 and chronic obstructive pulmonary disease. The patient is improving on breathing treatments with oxygen. 3. Pericardial effusion, stable at this time. Cardiology is currently following. 4. Anemia. Hemoglobin is stable at 9.2. Would transfuse packed red blood cells if hemoglobin drops below 8.0. 5. Elevated D-dimer. The patient has no pulmonary embolism per scan, and no evidence of deep venous thrombosis on physical exam. 6. Weakness and deconditioning. The patient is undergoing physical therapy at this time, and will likely be discharged to rehabilitation. We will follow along with you and make further recommendations pending outcomes. The above reflects the history, exam, assessment, and plan of Dr. Bojorquez. Dictated by PEPITO Brown for Jose Juan Bojorquez MD cc: PEPITO Brown MD
--- NOTE | 2019-03-20 15:30 | PROGRESS NOTE ---
DATE: 03/20/2019 SUBJECTIVE: This patient seems to be doing better. She is not complaining of shortness of breath. She does have generalized weakness, x-ray showed pneumonia and she has also a urinary tract infection. I have requested an evaluation by Infectious Disease Department. I will follow their recommendations. OBJECTIVE: Vital Signs: Temperature 97.5 degrees, pulse 95, respiratory rate 18, blood pressure 82/52, oxygen saturation 93 on 3 L of nasal cannula. HEENT: Head normocephalic, no trauma. PERRLA. Neck: Supple. No JVD. No masses. Central trachea. Chest: Decreased breath sounds globally with prolonged expiratory phase. Some crepitus at the right base. Abdomen: Soft, nontender, nondistended. No hepatosplenomegaly. Extremities: No edema, no clubbing, no cyanosis. She does have a postoperative dressing at the level of the right thigh. She is able to move all her toes. I do not see any neurovascular lesion. Neurological: She is alert, she is oriented x3. No focal deficits. LABORATORY: WBC 8.7, hemoglobin 9.2, hematocrit 30, platelet count 271,000. Sodium 136, potassium chloride 94, bicarbonate 27, BUN 28, creatinine 0.8, glucose 155, calcium 8.9. ASSESSMENT AND PLAN: 1. Acute hypoxemic respiratory failure in a patient with lung cancer, possible chronic obstructive pulmonary disease exacerbation and right lower lobe pneumonia. Continue antibiotics, broad spectrum, oxygen supplementation, breathing treatment, Pulmonary Department has been consulted. 2. Sepsis, likely secondary to both pneumonia and urinary tract infection. Continue broad- spectrum antibiotics. Infectious Disease Department has been consulted. 3. Pericardial effusion, echocardiogram has been done already. Cardiology department will just monitor this patient closely, but no intervention at this moment. 4. Urinary tract infection with a positive culture that showed gram-negative rods. 5. Hyperlipidemia. Continue with statins. 6. Anemia, stable. 7. Diabetes. Continue with same management for now. She seems to be stable. 8. Atrial fibrillation. Continue with same management. 9. Hyponatremia, resolved. 10. Elevated D-dimer. CT angiogram did not show any pulmonary embolism. She is not having significant leg edema that suggests DVT or pain, probably the elevated D-dimer was related to recent surgery. 11. Lung cancer with bone metastasis, Hematology Oncology Department following this patient. They have requested multiple CT scans to evaluate this patient. 12. Generalized weakness and physical deconditioning. Continue physical therapy and occupational therapy. She seems to be doing a little bit better. 13. Disposition: Likely this patient will need to go to a rehab center pending a sputum culture as well. cc: Marshall Sagastume MD
--- NOTE | 2019-03-20 16:37 | Diag Imaging Result Doc PS360 ---
EXAM: CT ABD/PELVIS W/IV CONT ONLY 03/20/2019 HISTORY: Hx lung ca TECHNIQUE: This exam was performed using automated exposure control, adjustment of mA or kV according to patient size, and/or use of iterative reconstruction technique. COMMENT: The current study is compared with 04/11/[address] of the chest dated 03/16/2019. There is a right pleural effusion which was not present on 03/16/2019. There is apparent atelectasis or fibrosis in the anterior inferior left lower lobe which was present previously. There is increased compressive atelectasis of the left lower lobe. There is cardiomegaly. There is a pericardial effusion which was also present previously. There are numerous granulomata in the spleen. The spleen is not enlarged. The adrenal glands are not enlarged. The pancreas is stable in appearance. There are atherosclerotic calcifications in the aorta and iliac arteries. There is no evidence of aneurysm. There is an accessory right renal artery. The renal and mesenteric arteries are patent. There is no evidence of nephrolithiasis or hydronephrosis. There are some granulomata in the liver. There are no apparent gallstones. The liver is otherwise unremarkable. The kidneys are without evidence of mass. There is no evidence of bowel obstruction or significant adenopathy. There is a fair amount of stool present in the colon particularly the right colon. Pelvis: The appendix is normal in appearance. There is some presacral edema or fibrosis which was not apparent on the previous examination of 04/11/2012. There is some stool in the rectum. The possibility of proctitis cannot be excluded. The urinary bladder is not distended. There is no evidence of significant adenopathy. There is a 15 mm right ovarian cyst. There has been internal fixation of the right proximal femur. There are degenerative facet changes in the lumbar spine. No evidence of acute bony abnormality is present. IMPRESSION: 1. Right pleural effusion and lower lobe atelectasis versus pneumonia. 2. Constipation. 3. Perirectal edema. The possibility of proctitis cannot be excluded. Electronically signed by Murtaza Grant 03/20/2019 4:35 PM
[2019-03-20] MEDS: ZYVOX PO SCH (17:44)
--- NOTE | 2019-03-20 19:24 | INFECTIOUS DISEASE CONSULT REP ---
DATE: 03/20/2019 CONCLUSION: The patient has a worsening right lung pneumonia. She also has an Enterobacter urinary tract infection. The patient appears to be developing oral candidiasis. RECOMMENDATIONS: I have discontinued Zosyn, and placed the patient on Zyvox 600 mg p.o. every 12 hours and cefepime 1 g IV every 8 hours. I am going to start the patient on Mycostatin swish and swallow. DISCUSSION: The patient was unable provide much of a history. It was mainly taken from the family. The patient has a chronic cough, but it increased approximately 1 to 2 weeks ago. She also started having an orange-green sputum. She has not complained of any dysuria or flank pain. The patient's CBC shows a white count of 8700, hemoglobin 9.2, and platelet count 271,000. Creatinine is 0.8, GFR is greater than 60. Blood cultures are pending. Urinalysis showed white cells, but no bacteria. 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 REVIEW OF SYSTEMS: Eyes and ears: Her hearing and vision is good. Neck: No stiffness. Pulmonary: The patient has a chronic cough. She does not usually produce sputum with it. She does not complain of being short of breath. Cardiac: No chest pain or palpitations. Genitourinary: No dysuria or flank pain. Gastrointestinal: No nausea or vomiting. She does, though, have loose stools on a fairly regular basis. Bones, joints, muscles: The patient has what is probably a metastatic cancer from her lung involving her right femur. She has had surgery on the leg. PREVIOUS HOSPITALIZATIONS AND OPERATIONS: The patient has had labor and deliveries, a partial colectomy due to diverticulitis, an appendectomy, an aortic valve replacement, and a ej was recently put in the patient's femur that has metastatic cancer in it, and it was felt that the ej was needed so that the femur did not fracture. MEDICAL DISEASES: Positive for chronic obstructive pulmonary disease, atrial fibrillation, congestive heart failure, diabetes mellitus, stroke, lung cancer which has metastasized to the right femur. SOCIAL HISTORY: The patient did smoke and drink, but she has stopped for years. She does not use any illicit drugs. She does not have any pets at home. She is . PHYSICAL EXAMINATION: Vital Signs: Temperature is 99 degrees, pulse 110, respirations 15, blood pressure 92/56. The patient weighs 122 pounds. General: This is a chronically ill-appearing, elderly female. She is in no acute distress. Head, eyes, ears, nose, and throat: She can hear my spoken words and see near objects. She does wear dentures. Her tongue is erythematous and the patient says it is sore. Neck: No meningismus. Lungs: I heard rales in the right base. Left lung was clear. Cardiovascular: Heart rate is regular. Abdomen: Soft and nontender. Extremities: Both legs are not edematous. Neurologic: The patient is lethargic today. She can move her arms and legs, and she can talk in a coherent fashion. Integument: No rash. Thank you for the consult. cc: Anuel Conteh MD
--- NOTE | 2019-03-20 19:40 | Diag Imaging Result Doc PS360 ---
EXAM: CT THORACIC SPINE W/CONTRAST - 03/20/2019 HISTORY: Hx lung ca TECHNIQUE: CT thorax with intravenous contrast COMPARISON: None. FINDINGS: The bones appear osteopenic. There is no discrete destructive or sclerotic lesion identified. There is no fracture or subluxation identified. There is slight S-shaped scoliosis. There are mild multilevel degenerative changes with small anterior lateral osteophytes. There are right perihilar pulmonary opacity, right pleural effusion, and dependent/compressive atelectasis at the right lower lobe noted. IMPRESSION: Apparent osteopenia. No indication of metastatic disease to the thoracic spine. No evidence of fracture or subluxation. Mild multilevel degenerative changes. This exam was performed using automated exposure control, adjustment of mA or kV according to patient size, and/or use of iterative reconstruction technique. Electronically signed by Devon Garcia 03/20/2019 7:38 PM
[2019-03-20] MEDS: PRILOSEC PO SCH (20:51)
[2019-03-20] MEDS: LIPITOR PO SCH (20:51)
[2019-03-21] MEDS: DUONEB (A & A) INH SCH ×5 (03:07→19:12)
[2019-03-21] MEDS: MAXIPIME 1 GM in NS 50 ML IV SCH ×4 (04:45→21:48)
[2019-03-21] MEDS: ZYVOX PO SCH ×2 (04:45→18:16)
[2019-03-21 07:33] LABS: AGAP 11; BUN 28 mg/dL (8-22); CALCIUM 8.5 mg/dL (8.8-10.2); CHLORIDE 95 mmol/L (98-107); COSMO 277; CREATININE 0.8 mg/dL (0.5-0.9); ESTIMATED GFR > 60; GLUCOSE 152 mg/dL (70-104); POTASSIUM 3.8 mmol/L (3.5-5.1); SODIUM 134 mmol/L (136-145); TCO2 28 mmol/L (25-35)
[2019-03-21] MEDS: PLAVIX PO SCH (09:56)
[2019-03-21] MEDS: LASIX IV SCH (09:56)
[2019-03-21] MEDS: ATIVAN PO SCH ×2 (09:56→21:48)
[2019-03-21] MEDS: NORCO-7.5 PO PRN ×4 (09:57→23:11)
[2019-03-21] MEDS: LOPRESSOR PO SCH ×2 (09:57→21:51)
[2019-03-21] MEDS: MYCOSTATIN SUSP PO SCH ×4 (09:58→21:48)
[2019-03-21] MEDS: ASPIRIN PO SCH (09:58)
[2019-03-21] MEDS: HUMALOG SUBQ SCH ×3 (11:37→21:51)
--- NOTE | 2019-03-21 14:31 | PROGRESS NOTE ---
DATE: 03/21/2019 SUBJECTIVE: This patient seems to be doing better. She was complaining of the back pain this morning. She is tolerating p.o. She is still working with physical therapy and the plan is to do a CT-guided bone biopsy next Sunday, after that hopefully this patient can be discharged to a rehab center. OBJECTIVE: Vital Signs: Temperature 98.1 degrees, pulse 70, respiratory rate 20, blood pressure 89/45, oxygen saturation 100% on 3 L of nasal cannula. HEENT: Head normocephalic. No trauma. PERRLA. Neck: Supple. No JVD. No masses. Central trachea. Chest: Decreased breath sounds globally with prolonged expiratory phase. Some crepitus at the right base. Abdomen: Soft, nontender, nondistended. No hepatosplenomegaly. Extremities: No edema, no clubbing, no cyanosis. She does have a postoperative dressing at the level of the right thigh. She is able to move all her toes. I do not see any neurovascular lesion. Neurological: The patient is alert, she is oriented x3. No focal deficits. LABORATORY: Sodium 134, potassium 3.8, chloride 95, bicarbonate 28, BUN 28, creatinine 0.8, glucose 152, calcium 8.5. ASSESSMENT AND PLAN: 1. Acute hypoxemic respiratory failure in a patient with lung cancer, possible chronic obstructive pulmonary disease exacerbation and right lower lobe pneumonia, continue with antibiotics per Infectious Disease Department, broad-spectrum antibiotics, breathing treatment. 2. Sepsis likely secondary to both pneumonia and urinary tract infection. 3. Pericardial effusion, echocardiogram has been done already. Cardiology Department will just monitor this patient closely. No intervention at this moment. No tamponade. 4. Urinary tract infection due to Enterobacter aerogenes. 5. Hyperlipidemia. Continue with statins. 6. Anemia stable. 7. Diabetes. Continue with same management for now. 8. Atrial fibrillation. Continue with same management. She seems to be stable. 9. Hyponatremia resolved. 10. Elevated D-dimer. CT angiogram did not show any pulmonary embolism. She is not having significant edema that suggest deep vein thrombosis or pain and probably the D-dimer was related to recent surgery. Pending lower extremity ultrasound to rule out deep vein thrombosis. 11. Lung cancer with bone metastasis, we recently did a CT chest and CT abdomen, pending bone biopsy which will be done this coming Sunday. 12. Generalized weakness and physical deconditioning. Continue physical therapy and occupational therapy. She seems to be doing better. 13. Disposition. Next coming Sunday she will have a bone biopsy and then after that she will be discharged to a rehab center if everything is okay. cc: Marshall Sagastume MD
--- NOTE | 2019-03-21 17:58 | INFECTIOUS DISEASE PROGRESS NO ---
DATE: 03/21/2019 PRESENT ILLNESS: The patient has right lung pneumonia and an Enterobacter urinary tract infection. She also has oral candidiasis. MEDICATION: This is day 1 of treatment with cefepime, Zyvox and nystatin swish and swallow. PHYSICAL EXAMINATION: Vital Signs: Temperature is 98.1 degrees, pulse 70, respirations 20, blood pressure 89/45. General: This is a chronically ill-appearing elderly female. She is in no acute distress. Head, eyes, ears, nose, and throat: Can hear my spoken words and see near objects. Today she does not seem to have any white patches on her tongue. Neck: No pain with movement. Lungs: A few rales were heard in the right base. The left lung was clear. Cardiovascular: Heart rate is regular. Abdomen: Soft and nontender. Extremities: No leg edema or erythema. Neurologic: The patient is alert today. She can move her arms and legs. She talks in a coherent fashion. Integument: No rash noted. LAB AND X-RAY: CT scan shows a right lower lobe pneumonia. Urine culture grew Enterobacter. Creatinine is 0.8. GFR is greater than 60. CBC shows a white count of 8700, hemoglobin 9.2, and platelet count 271,000. ASSESSMENT AND PLAN: The patient has pneumonia and urinary tract infection. The plan is to continue the current antibiotics, namely cefepime, Zyvox and nystatin. The patient also has oral candidiasis. COMORBIDITY: Elderly, COPD, diabetes, CHF, metastatic lung cancer, stroke. cc: Anuel Conteh MD MTDBecca
--- NOTE | 2019-03-21 21:15 | Extremity Venous Study ---
PROCEDURE NAME: Venous U/S Bilateral Legs - 03/21/2019 REQUESTING PHYSICIAN: Dr. Marshall Molina. INDICATIONS: Rule out DVT. FINDINGS: Deep superficial veins in the bilateral lower extremities were visualized along their course. All vessels appear compressible with forward flow and no evidence of intraluminal thrombus. SUMMARY: No deep or superficial venous thrombosis seen in bilateral lower extremities. cc: MD Marshall Doty MD
[2019-03-21] MEDS: PRILOSEC PO SCH (21:48)
[2019-03-21] MEDS: LIPITOR PO SCH (21:48)
[2019-03-22] MEDS: DUONEB (A & A) INH SCH ×3 (00:12→08:07)
[2019-03-22] MEDS: ZYVOX PO SCH ×2 (05:22→17:47)
[2019-03-22] MEDS: MAXIPIME 1 GM in NS 50 ML IV SCH ×3 (05:22→21:24)
[2019-03-22 07:11] LABS: BASO# 0.03 X1000 (0.0-0.2); BASO% 0.5 % (0.0-0.8); EOS# 0.14 X1000 (0.0-0.7); EOS% 2.5 % (0.0-10.0); HEMOGLOBIN 8.8 g/dL (12.0-16.0); IMM GRAN# 0.03 X1000 (0.0-0.04); IMM GRAN% 0.5 % (0.0-0.5); LYMPH% 12.6 % (20.5-51.1); MCHC 30.3 g/dL (33-37); MONO# 0.62 X1000 (0.11-0.59); MONO% 11.1 % (1.7-9.3); MPV 9.1 FL (7.4-10.4); NEUT# 4.05 X1000 (1.4-6.5); NEUT% 72.8 % (42.2-75.2); PLT 333 X1000 (130-400); RBC 3.26 XMIL (4.2-5.4); RDW 14.6 % (11.5-14.5); WBC 5.57 X1000 (4.8-10.8)
[2019-03-22 07:37] LABS: AGAP 16; BUN 25 mg/dL (8-22); CALCIUM 8.7 mg/dL (8.8-10.2); CHLORIDE 96 mmol/L (98-107); COSMO 279; CREATININE 0.8 mg/dL (0.5-0.9); ESTIMATED GFR > 60; GLUCOSE 149 mg/dL (70-104); POTASSIUM 3.7 mmol/L (3.5-5.1); SODIUM 136 mmol/L (136-145); TCO2 24 mmol/L (25-35)
[2019-03-22] MEDS: HUMALOG SUBQ SCH ×4 (08:04→21:23)
[2019-03-22] MEDS: LOPRESSOR PO SCH ×2 (08:17→21:24)
[2019-03-22] MEDS: ASPIRIN PO SCH (08:17)
[2019-03-22] MEDS: MYCOSTATIN SUSP PO SCH ×4 (08:17→21:24)
[2019-03-22] MEDS: NORCO-7.5 PO PRN ×3 (08:18→17:48)
[2019-03-22] MEDS: PLAVIX PO SCH (08:18)
[2019-03-22] MEDS: ATIVAN PO SCH ×2 (08:18→21:26)
[2019-03-22] MEDS: MIRALAX PO PRN ×2 (08:20→17:48)
[2019-03-22] MEDS ORDERED: NS NEB INH SCH (10:30)
[2019-03-22] MEDS: LASIX IV SCH (11:14)
--- NOTE | 2019-03-22 14:16 | PROGRESS NOTE ---
DATE: 03/22/2019 SUBJECTIVE: This patient seems to be better. She had an episode of vomiting today. No bowel movement for the past couple days, so we will give her MiraLAX. We will get a bone biopsy this coming Sunday, and she can be discharged the same day to rehab center. OBJECTIVE: Vital Signs: Temperature 97.6 degrees, pulse 89, respiratory rate 20, blood pressure 115/64, oxygen saturation 99 on 2 L of nasal cannula. HEENT: Head normocephalic, no trauma. PERRLA. Neck: Supple. No JVD. No masses. Central trachea. Chest: Decreased breath sounds globally with prolonged expiratory phase. Some crepitus at the right base. Abdomen: Soft, nontender, nondistended. No hepatosplenomegaly. Extremities: No edema, no clubbing, no cyanosis. She does have a postoperative dressing at the level of the right thigh. She is able to move all her toes. I do not see any neurovascular lesion. Neurological examination: Alert. She is oriented x3. No focal deficits. LABORATORY: WBC 5.5, hemoglobin 8.8, hematocrit 29, platelets 333. Sodium 136, potassium 3.7, chloride 96, bicarbonate 24. BUN 25, creatinine 0.8, glucose 149, calcium 8.7. ASSESSMENT AND PLAN: 1. Acute hypoxemic respiratory failure in a patient with lung cancer, possible chronic obstructive pulmonary disease exacerbation, and right lower lobe pneumonia. Continue with antibiotics per Infectious Disease Department plus breathing treatment. 2. Sepsis likely secondary to both pneumonia and urinary tract infection. Continue with antibiotics. 3. Pericardial effusion. Echocardiogram has been done already. Cardiology Department will just monitor this patient closely. No intervention for now. 4. Urinary tract infection due to Enterobacter aerogenes, aware. 5. Hyperlipidemia. Continue with statins. 6. Anemia. Stable. 7. Diabetes. Continue with same management for now. 8. Atrial fibrillation. Continue with same management. She seems to be stable. 9. Hyponatremia. Resolved. 10. Elevated D-dimer. CT angiogram did not show any pulmonary embolism. She is not having significant edema or pain suggesting deep vein thrombosis at the level of the lower extremities, but I requested a Doppler ultrasound to rule it out completely. 11. Lung cancer with bone metastasis. We recently did a CT scan of the chest and abdomen, pending bone biopsy, that will be done this coming Sunday. 12. Generalized weakness and physical deconditioning. Continue physical therapy and occupational therapy. She seems to be doing better. 13. Disposition: She will have a biopsy done in 2 days, and then she will be discharged to a rehabilitation center if she is doing okay. cc: Marshall Sagastume MD
[2019-03-22] MEDS: ATROVENT NEB INH SCH ×2 (16:18→18:54)
[2019-03-22] MEDS: XOPENEX NEB INH SCH ×2 (16:18→18:54)
[2019-03-22] MEDS: LIPITOR PO SCH (21:25)
[2019-03-22] MEDS: PRILOSEC PO SCH (21:25)
[2019-03-23] MEDS: ATROVENT NEB INH SCH ×6 (03:19→23:57)
[2019-03-23] MEDS: XOPENEX NEB INH SCH ×5 (03:20→23:57)
[2019-03-23] MEDS: ZYVOX PO SCH ×2 (05:33→18:49)
[2019-03-23] MEDS: MAXIPIME 1 GM in NS 50 ML IV SCH ×3 (05:34→21:38)
[2019-03-23] MEDS: NORCO-7.5 PO PRN ×3 (06:54→21:39)
[2019-03-23] MEDS: HUMALOG SUBQ SCH ×4 (07:53→21:37)
[2019-03-23] MEDS: LOPRESSOR PO SCH ×2 (08:48→21:38)
[2019-03-23] MEDS: LASIX IV SCH (08:48)
[2019-03-23] MEDS: MYCOSTATIN SUSP PO SCH ×4 (08:48→21:38)
[2019-03-23] MEDS: PLAVIX PO SCH (08:49)
[2019-03-23] MEDS: ATIVAN PO SCH ×2 (08:49→21:38)
[2019-03-23] MEDS: ASPIRIN PO SCH (08:49)
--- NOTE | 2019-03-23 13:56 | PROGRESS NOTE ---
DATE: 03/23/2019 SUBJECTIVE: The patient seems to be better. She is tolerating p.o. Tomorrow hopefully she will have a bone biopsy done. Then if she is doing fine, she can be discharged to the rehab center, [facility]. OBJECTIVE: Vital Signs: Temperature 98.5 degrees, pulse 78, respiratory rate 20, blood pressure 97/48, oxygen saturation 100% on 3 L of nasal cannula. HEENT: Head normocephalic. No trauma. PERRLA. Neck: Supple. No JVD. No masses. Central trachea. Chest: Decreased breath sounds globally with prolonged expiratory phase. Some crepitus at the right base. Abdomen: Soft, nontender, nondistended. No hepatosplenomegaly. Extremities: No edema. No clubbing. No cyanosis. She does have a postoperative dressing at the level of the right thigh. She is able to move all her toes. I do not see any neurovascular lesion. Neurological: This patient is alert. She is oriented x3. No focal deficits. LABORATORY: Glucose 190. ASSESSMENT AND PLAN: 1. Acute hypoxemic respiratory failure in a patient with lung cancer, possible chronic obstructive pulmonary disease exacerbation and right lower lung pneumonia. Continue with antibiotics per Infectious Disease Department, breathing treatment, and oxygen supplementation. 2. Sepsis secondary to both pneumonia and urinary tract infection. Continue with antibiotics. 3. Pericardial effusion. Echocardiogram has been done already. Cardiology Department will just monitor this patient closely. No intervention for now. 4. Urinary tract infection due to Enterobacter aerogenes, aware. 5. Hyperlipidemia. Continue with statins. 6. Anemia. Stable. 7. Diabetes. Continue with same management for now. 8. Atrial fibrillation. Continue with same management. She seems to be stable. 9. Hyponatremia, resolved. 10. Elevated D-dimer. CT angiogram did not show pulmonary embolism. Lower extremity ultrasound is negative for DVT. 11. Lung cancer with bone metastasis. We recently did a CT scan of the chest and abdomen. Pending bone biopsy. That hopefully will be done tomorrow. I asked already for PT, PTT, and INR. She has been placed n.p.o. just in case. 12. Generalized weakness and physical deconditioning. Continue physical therapy and occupational therapy. She seems to be doing better. 13. Disposition. She will have a biopsy done tomorrow. Then if she is doing fine she can be discharged to her rehab center. She has been accepted to go to [facility]. cc: Marshall Sagastume MD
[2019-03-23] MEDS: PRILOSEC PO SCH (21:38)
[2019-03-23] MEDS: LIPITOR PO SCH (21:38)
[2019-03-24] MEDS: ATROVENT NEB INH SCH ×3 (03:10→15:49)
[2019-03-24] MEDS: MAXIPIME 1 GM in NS 50 ML IV SCH ×2 (05:24→12:42)
[2019-03-24] MEDS: ZYVOX PO SCH ×2 (05:24→10:42)
[2019-03-24 06:56] LABS: BASO# 0.02 X1000 (0.0-0.2); BASO% 0.4 % (0.0-0.8); EOS% 3.9 % (0.0-10.0); HEMATOCRIT 28.7 % (37.0-47.0); HEMOGLOBIN 8.9 g/dL (12.0-16.0); IMM GRAN# 0.03 X1000 (0.0-0.04); IMM GRAN% 0.6 % (0.0-0.5); LYMPH# 0.68 X1000 (1.2-3.4); LYMPH% 13.2 % (20.5-51.1); MCH 27.6 PG (27-31); MCV 88.9 FL (81-99); MONO# 0.71 X1000 (0.11-0.59); MONO% 13.8 % (1.7-9.3); MPV 8.8 FL (7.4-10.4); NEUT# 3.51 X1000 (1.4-6.5); NEUT% 68.1 % (42.2-75.2); PLT 412 X1000 (130-400); RBC 3.23 XMIL (4.2-5.4); RDW 14.6 % (11.5-14.5); WBC 5.15 X1000 (4.8-10.8)
[2019-03-24 07:03] LABS: INR 1.03; PROTIME 13.7 Seconds (11.0-16.0); PTT 27.4 Seconds (22.3-41.8)
[2019-03-24 07:20] LABS: CALCIUM 8.9 mg/dL (8.8-10.2); CREATININE 0.9 mg/dL (0.5-0.9); POTASSIUM 3.9 mmol/L (3.5-5.1)
--- NOTE | 2019-03-24 07:56 | Diag Imaging Result Doc PS360 ---
CHEST-1 VIEW - 03/24/2019 INDICATION: pneumonia COMPARISON: 03/19/2019 FINDINGS: Stable cardiomegaly. There has been decrease in the density of focal right perihilar infiltrate. No new infiltrates. No large pleural effusion. IMPRESSION: Improvement in the right perihilar pneumonia. Electronically signed by Sumanth Cano 03/24/2019 7:53 AM
[2019-03-24] MEDS: HUMALOG SUBQ SCH ×2 (08:02→12:45)
[2019-03-24] MEDS ORDERED: XYLOCAINE-MPF 2% ONE (08:23)
[2019-03-24] MEDS ORDERED: DIPRIVAN 1% ONE (08:23)
[2019-03-24] MEDS ORDERED: FENTANYL ONE (08:24)
--- NOTE | 2019-03-24 10:11 | Diag Imaging Result Doc PS360 ---
EXAM: CT GUIDED BX BONE INDICATION: Rt femur lesion Hx lung ca TECHNIQUE: COMPARISON: None. FINDINGS: Risks, benefits, and alternatives were discussed with the patient and informed consent was obtained. The patient was placed in a prone position and was prepped and draped in sterile fashion. Conscious sedation was provided by the anesthesia department. Local anesthesia was achieved with 1% lidocaine solution. Using CT guidance, a large bore marrow biopsy needle was used to obtain two core biopsies from the known lytic lesion that has been seen on prior plain radiograph involving the posteromedial right femoral shaft adjacent to a metallic femoral ej that had been recently placed. There were no known complications. IMPRESSION: Technically successful CT guided right femoral shaft bone biopsy. Electronically signed by Prieto Olmos 03/24/2019 10:09 AM
[2019-03-24] MEDS: PLAVIX PO SCH (10:34)
[2019-03-24] MEDS: LOPRESSOR PO SCH (10:34)
[2019-03-24] MEDS: ASPIRIN PO SCH (10:34)
[2019-03-24] MEDS: ATIVAN PO SCH (10:34)
[2019-03-24] MEDS: MYCOSTATIN SUSP PO SCH (10:34)
[2019-03-24] MEDS: LASIX IV SCH (10:34)
[2019-03-24] MEDS: NORCO-7.5 PO PRN ×2 (10:35→15:50)
[2019-03-24] MEDS: XOPENEX NEB INH SCH ×2 (10:49→15:49)
--- NOTE | 2019-03-24 11:08 | ECHO REPORT ---
ORDER DATE: 03/21/2019 ECHOCARDIOGRAPHIC MEASUREMENTS: 1. Interventricular septum 0.9. 2. Left ventricular posterior wall 1.1. 3. Diastolic diameter 3.7. 4. Left atrium 4.8. There is biatrial enlargement. Mitral valve was normal. There is mitral annular calcification. Bioprosthetic valve in the aortic position was stable. Pulmonic valve was normal. There is trace pulmonary regurgitation. There is biatrial enlargement. Hyperdynamic left ventricular systolic function. Estimated ejection fraction of 65 to 70 percent. Atrial fibrillation was noted. There is mild mitral regurgitation. Mild tricuspid regurgitation. Peak velocity across the tricuspid valve was 3 m/sec. Pulmonary artery systolic pressure of 50 mmHg. Peak velocity across the aortic valve was up. 2.6 m/sec with a mean gradient of 15 mmHg. In keeping with bioprosthetic valve there is no aortic regurgitation. There is small anterior posterior pericardial effusion. There is no evidence of tamponade. There is no obvious intracardiac mass or thrombus seen. cc: MD Dallas Mortensen MD
[2019-03-24 12:36] VITALS: BP 86/43
[2019-03-24] MEDS ORDERED: LEVAQUIN PO SCH (15:00)
--- NOTE | 2019-03-24 16:42 | DISCHARGE SUMMARY ---
ADMISSION DATE: 03/18/2019 DISCHARGE DATE: 03/24/2019 DISCHARGE DISPOSITION: [facility]. DISCHARGE CONDITION: Hemodynamically stable. She got a right-sided bone biopsy today, CT-guided, which she tolerated well without any difficulty. It looks like she was on Plavix while getting the biopsy. She is, however, complaining of minimal pain at the site of the biopsy. DISCHARGE DIAGNOSES: 1. Acute hypoxic respiratory failure. 2. Acute pulmonary edema. 3. Acute chronic obstructive pulmonary disease exacerbation. 4. Right lower lobe pneumonia. 5. Acute blood loss anemia. 6. Sepsis due to pneumonia and urinary tract infection. 7. Acute cystitis and urinary tract infection by Enterobacter. OTHER DIAGNOSES: 1. History of chronic atrial fibrillation, not on anticoagulation because of history of gastrointestinal bleed. 2. Noninsulin-dependent diabetes mellitus. 3. History of lung cancer with bone metastasis, status post right-sided femoral prophylactic fixation with titanium trochanteric fixation nail system. PROCEDURES DURING HOSPITALIZATION: Bone biopsy from right femur. DISCHARGE MEDICATIONS: She is to go on 2 to 3 L/minute nasal cannula oxygen for hypoxic respiratory failure, omeprazole 20 mg at nighttime, aspirin 81 mg daily, atorvastatin 40 mg at nighttime, metoprolol 100 mg b.i.d., clopidogrel 75 mg daily, lorazepam 0.5 mg b.i.d. as needed for an anxiety, ipratropium 0.5 mg every 6 hours, levalbuterol 0.63 mg inhaled every 6 hours, metformin 500 mg b.i.d., levofloxacin 500 mg daily for 7 days for pneumonia and UTI, MiraLAX 17 g daily as needed for constipation, [place] 7.5 one tablet every 4 hours as needed for pain, 15 tablets have been prescribed. VITAL SIGNS: At the time of discharge, temperature 97.5 degrees, pulse 51, respiratory rate 14, blood pressure 122/80, saturating 96% on 2 L nasal cannula. PHYSICAL EXAMINATION: General: Does not appear in acute distress. HEENT: Oral cavity is moist. Lungs: Air entry bilaterally equal. No wheeze, rhonchi, crackles. Cardiovascular: S1, S2 normal. No murmur or gallop. Abdomen: Soft, nontender. Extremities: No lower extremity edema. She has a jose daniel on the right lateral thigh and there is a Band-Aid over the bone biopsy site without any hematoma formation. SIGNIFICANT LABORATORY DURING HOSPITAL ADMISSION AND DISCHARGE: Her hemoglobin was 9 and it was stable. Platelets 412,000, WBC 5,000. BUN 20, creatinine 0.7, blood sugar 131. SIGNIFICANT MICRO DURING HOSPITAL ADMISSION: Blood culture did not have any growth. Sputum culture had normal enrique. Urine culture had Enterobacter aerogenes which was sensitive to levofloxacin. SIGNIFICANT IMAGING DURING HOSPITAL ADMISSION: Pulmonary arteriogram on March 16 did not have any pulmonary emboli. It had cardiomegaly with pericardial effusion and pulmonary edema and scarring in the mid right lung. Echocardiogram performed had an ejection fraction of 60%. There was atrial fibrillation. 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 There was small anterior echo-free space and small-to- moderate posterior echo space because of pericardial effusion. Thoracic spine CT and abdomen and pelvis CT had osteopenia without any fracture or subluxation, right-sided pleural effusion, and right lower lobe pneumonia, constipation, and perirectal edema. Extremity venous studies did not have any superficial or DVT. HOSPITAL COURSE SUMMARY: Ms. Branham is an 83-year-old lady with past medical history of lung cancer for which she had only received radiation in the past, who was recently diagnosed with metastatic bone lesion of right femur and underwent right femoral prophylactic nailing to prevent pathological fracture, who came in as the home health nurse had noticed her to be hypotensive and hypoxic, so she was sent to the emergency room. In the emergency room, she was found to have right lower lobe pneumonia, acute pulmonary edema, acute UTI, and she was treated for sepsis and acute hypoxic respiratory failure with antibiotics. With antibiotics her clinical status improved. Previously, bone biopsy could not be performed at the time of nailing of the right femur, so she underwent a bone biopsy on March 20 which she tolerated well. Due to previous GI bleed history, she was not on anticoagulation. She was continued on her aspirin and clopidogrel. Cardiology team had recommended conservative management in terms of her pericardial effusion, which did not have any tamponade physiology. The patient will be discharged to rehab for physical deconditioning. She should complete the course of nystatin for oral candidiasis for 7 days, as well as levofloxacin for urinary tract infection and pneumonia. TIME SPENT: More than 30 minutes were spent discharging this patient. Plan of care discussed with the patient and her family at bedside. Their questions have been satisfactorily answered. Her jose daniel on the right thigh will be removed since she is 10 days postop. cc: Godfrey Rooney MD MTDBecca
--- NOTE | 2019-03-24 20:55 | INFECTIOUS DISEASE PROGRESS NO ---
DATE: 03/24/2019 PRESENT ILLNESS: The patient has a right lung pneumonia, an Enterobacter urinary tract infection, and oral candidiasis. MEDICATIONS: The patient has been on for the past 4 days combination of cefepime, Zyvox and nystatin swish and swallow. PHYSICAL EXAMINATION: Vital Signs: Temperature is 97.5 degrees, pulse 51, respirations 20, blood pressure 86/43. General: This is a chronically ill-appearing elderly female. She is in no acute distress. Head, eyes, ears, nose, and throat: She can hear my spoken words and see near objects. I did not notice any white patches on her tongue. Neck: No stiffness. Lungs: Clear to auscultation. Cardiovascular: The patient's heart rate is regular. Abdomen: Soft and not tender. Neurologic: The patient was sleepy today but she is arousable. She has been up walking a little bit today. LAB AND X-RAY: The patient's chest x-ray shows a decrease in size of the patient's right perihilar infiltrates. CBC shows a white count of 5150, hemoglobin 8.9, and platelet count 412,000. Creatinine is 0.9. GFR is 60. ASSESSMENT AND PLAN: The patient has pneumonia, urinary tract infection, and oral candidiasis. I have discontinued Zyvox and cefepime and instead placed the patient on Levaquin 500 mg daily for 7 days. Some of the side effects of the antibiotic, including rash, diarrhea, seizures, and tendon rupture, have been explained to the patient and her family. The patient and the family agree with treatment. I would suggest continuing Levaquin for 7 days and also continuing the nystatin for 7 days. COMORBIDITIES: The patient is elderly. She has COPD, diabetes mellitus, congestive heart failure, metastatic lung cancer, and a stroke. cc: Anuel Conteh MD
== END 2019-03-24 17:44 | DRG 987 ==
LOC: SUPCPDRO → ED 15:04 → 4N 20:17 → INTOOBSV 20:17 → SUATTDRO 20:17
PROVIDERS: ATTEND Internal Medicine

== ENCOUNTER 2019-04-09 23:27 | Inpatient (IN) ==
--- NOTE | 2019-04-10 00:28 | PROVIDER DOCUMENTATION ---
This chart was entered by Sammie Craft Scribe, acting as scribe for Marilia Gilman MD. HPI-Respiratory General - General Chief Complaint: Shortness of Breath Stated Complaint: Difficulty breathing Time Seen by Provider: 04/09/19 23:52 Source: patient, family Allergies/Adverse Reactions: Patient Allergies Allergy/AdvReac Type Severity Reaction Status Date / Time No Known Allergies Allergy Verified 03/16/19 16:21 Home Medications: Home Medication List Medication Instructions Recorded Confirmed Last Taken Type Omeprazole 20 mg PO QHS 07/01/12 03/16/19 03/15/19 History Metformin [Glucophage] 500 mg PO BID #0 09/23/13 03/16/19 03/16/19 Rx Aspirin 81 mg PO DAILY 05/13/15 03/16/19 03/16/19 History Atorvastatin Calcium [Lipitor] 40 mg PO HS 05/13/15 03/16/19 1 Day Ago History ~03/15/19 Clopidogrel [Plavix] 75 mg PO DAILY 05/13/15 03/16/19 03/16/19 History Metoprolol Tartrate 100 mg PO BID 03/17/19 03/17/19 03/16/19 09:00 History Hydrocodone/Acetaminophen [[place] 1 ea PO Q4H PRN PRN #15 tab 03/24/19 Unknown Rx 7.5-325 Tablet] Ipratropium [place] Neb [Atrovent 0.5 mg INH RTQ6H neb 03/24/19 Unknown Rx Neb] Levalbuterol Neb [Xopenex Neb] 0.63 mg INH RTQ6H.[place] neb 03/24/19 Unknown Rx Levofloxacin [Levaquin] 500 mg PO DAILY tab 03/24/19 Unknown Rx Lorazepam [Ativan] 0.5 mg PO BID PRN #20 tab 03/24/19 Unknown Rx Polyethylene Glycol 3350 [Miralax] 17 gm PO DAILY PRN PRN powder, 03/24/19 Unknown Rx packet - History of Present Illness-Resp Nature of Presenting Problem: pt is a 83 yr old female presenting via EMS from [facility] with complaint of worsening shortness of breath, pt reports recent hx of pneumonia and lung CA, seen by oncologist this AM and had chest xray done this AM, family reports xray showed continued pneumonia, PET scan 2 days ago showed fluid in lungs and possible new mass that might be "hidden". Daughter states that Dr was trying to schedule for outpatient thoracentesis but they were unable to complete the scheduled due to the "phones being down". pt reports increased work of breathing. pt was given Lasix by EMS enroute to ER. Severity in ED: reports: moderate Onset/Duration: reports: gradual Timing: reports: changing over time, getting worse Context: reports: other (recent pneumonia) Cough Quality/Degree: reports: moderate, productive cough Episode Frequency: occasional episodes Current Respiratory Medication Therapy: Initiated see nurses note Modifying Factors: improves with: lying down (worsens) Associated Symptoms: reports: cough, shortness of breath. denies: fever/chills Similar Symptoms Previously?: Yes Recently seen or treated by another doctor?: Yes Review of Systems - Adult - REVIEW OF SYSTEMS - ADULT Constitutional: reports: surekha. denies: chills, fever Eyes: reports: no symptoms reported Ears, Nose, Mouth & Throat: reports: no symptoms reported Cardiovascular: denies: chest pain, palpitations, syncope Respiratory: reports: cough, shortness of breath Gastrointestinal: denies: diarrhea, vomiting Genitourinary: reports: no symptoms reported Musculoskeletal: reports: no symptoms reported Integumentary: reports: no symptoms reported Neurological: denies: dizziness/vertigo, headache/migraines Psychiatric: reports: no symptoms reported Endocrine: reports: no symptoms reported Hematologic/Lymphatic: reports: no symptoms reported Allergic/Immunologic: reports: no symptoms reported All Other Systems: Reviewed and Negative Past History - Adult - PAST MEDICAL HISTORY-ADULT Review of Records: reports: Old Records Reviewed, Nursing Assessment Review, Medications Reviewed, Social history reviewed & non-contributory. Major Childhood Illnesses: reports: denies history Cardiovascular: reports: A-Fib, HTN, heart valve problem (replaced) Respiratory: reports: COPD Gastrointestinal: reports: denies history Obstetrical/Gynecological: reports: denies history Genitourinary: reports: denies history Musculoskeletal: reports: denies history Neurological: reports: CVA (2008), stroke deficits (mild left sided weakness) Endocrine/Immune: reports: Diabetes Other Conditions: reports: denies history - PRIOR SURGERIES/PROCEDURES Surgical/Procedure History: reports: appendectomy, bowel surgery (partial colectomy), orthopedic (extremity) (ej placed 2/2 to mets to bone from lung CA) , other (heart valve replacement) - IMMUNIZATION STATUS Childhood Immunizations: See Nurse Assessment Flu Vaccine: See Nurse Assessment - FAMILY HISTORY Family History: reviewed, not pertinent - SOCIAL HISTORY Smoking: quit greater than 1 year Living [facility] Physical Exam-General - PHYSICAL EXAM-ADULT Initial Vital Signs Reviewed: Yes - CONSTITUTIONAL General Appearance: moderate distress - EYES Eyes: PERRL/EOMI - HEAD, EARS, NOSE, MOUTH & THROAT HENMT: normocephalic/atraumatic, moist mucous membranes - NECK Neck: full range of motion, supple, normal inspection - RESPIRATORY Respiratory: chest non-tender, respiratory distress, crackles (diffuse), increased rate - CARDIOVASCULAR Cardiovascular: normal peripheral pulses, tachycardia, irregularly irregular - GASTROINTESTINAL (ABDOMEN) Abdominal Exam: non tender, soft - LYMPHATIC Lymphatic: no adenopathy - MUSCULOSKELETAL Back Exam: normal inspection Extremity: normal range of motion, non-tender, normal inspection - SKIN Integumentary: normal color, warm/dry - NEUROLOGIC Neurologic: grossly normal - PSYCHIATRIC Psych/Mental Status: normal mood/affect, normal thought content, normal thought process, oriented x 3 Progress - PLAN OF CARE/RESULTS Progress/Plan/Lab Results: Vital Signs - 8 hr 04/09/19 23:47 04/10/19 00:00 04/10/19 00:19 Temperature 98.1 F 98.4 F Pulse Rate 130 H 171 H 122 H Respiratory Rate 24 24 30 H Blood Pressure 142/117 167/88 167/88 O2 Sat by Pulse Oximetry 96 96 97 04/10/19 00:30 04/10/19 00:31 04/10/19 01:00 Temperature Pulse Rate 158 H 166 H Respiratory Rate 38 H 24 Blood Pressure 126/91 93/71 O2 Sat by Pulse Oximetry 98 98 99 04/10/19 01:48 04/10/19 02:02 04/10/19 02:31 Temperature 98.1 F 98.1 F Pulse Rate 159 H 122 H 126 H Respiratory Rate 26 H 30 H 24 Blood Pressure 114/92 135/80 142/80 O2 Sat by Pulse Oximetry 98 100 97 04/10/19 03:00 04/10/19 04:01 04/10/19 04:31 Temperature 98 F Pulse Rate 144 H 147 H 126 H Respiratory Rate 21 25 H 25 H Blood Pressure 144/96 134/96 104/81 O2 Sat by Pulse Oximetry 97 97 98 Laboratory Results - last 24 hr 04/10/19 04/10/19 04/10/19 00:00 00:00 00:00 WBC 14.29 H RBC 3.67 L Hgb 9.8 L Hct 31.9 L MCV 86.9 MCH 26.7 L MCHC 30.7 L RDW Std Deviation 15.7 H Plt Count 373 MPV 9.2 Immature Gran % (Auto) 0.3 Neut % (Auto) 81.9 H Lymph % (Auto) 7.6 L [place] % (Auto) 9.6 H Eos % (Auto) 0.5 Baso % (Auto) 0.1 Immature Gran # (Auto) 0.04 Neut # (Auto) 11.70 H Lymph # (Auto) 1.09 L [place] # (Auto) 1.37 H Eos # (Auto) 0.07 Baso # (Auto) 0.02 PT INR PTT (Actin FS) Specimen Type Sample Site pH pCO2 pO2 HCO3 Base Excess Oxyhemoglobin ABG O2 Sat (Calculated) ABG O2 Saturation ABG Carboxyhemoglobin ABG Methemoglobin Lance Test A-a O2 Difference Total Hemoglobin Lactate Blood Gas Modality Vent Mode FiO2 % Inspiratory BiPAP Expiratory BiPAP Sodium 136 Potassium 4.3 Chloride 97 L Carbon Dioxide 25 Anion Gap 14 BUN 13 Creatinine 0.6 Estimated GFR/1.73 m2 > 60 BUN/Creatinine Ratio 22 Glucose 234 H Calculated Osmolality 280 Calcium 8.7 L Total Bilirubin 0.36 AST 17 ALT 10 Alkaline Phosphatase 163 H Troponin T 0.021 Asy-N-Qhpzffuzaaa Pept Total Protein 6.7 Albumin 4.0 Globulin 2.7 Albumin/Globulin Ratio 1.5 Plasma Lactate 04/10/19 04/10/19 04/10/19 00:00 00:00 00:00 WBC RBC Hgb Hct MCV MCH MCHC RDW Std Deviation Plt Count MPV Immature Gran % (Auto) Neut % (Auto) Lymph % (Auto) [place] % (Auto) Eos % (Auto) Baso % (Auto) Immature Gran # (Auto) Neut # (Auto) Lymph # (Auto) [place] # (Auto) Eos # (Auto) Baso # (Auto) PT 13.9 INR 1.06 PTT (Actin FS) 28.2 Specimen Type Sample Site pH pCO2 pO2 HCO3 Base Excess Oxyhemoglobin ABG O2 Sat (Calculated) ABG O2 Saturation ABG Carboxyhemoglobin ABG Methemoglobin Lance Test A-a O2 Difference Total Hemoglobin Lactate Blood Gas Modality Vent Mode FiO2 % Inspiratory BiPAP Expiratory BiPAP Sodium Potassium Chloride Carbon Dioxide Anion Gap BUN Creatinine Estimated GFR/1.73 m2 BUN/Creatinine Ratio Glucose Calculated Osmolality Calcium Total Bilirubin AST ALT Alkaline Phosphatase Troponin T Bbo-I-Iwdqdnuubci Pept 8607 H Total Protein Albumin Globulin Albumin/Globulin Ratio Plasma Lactate 3.6 H 04/10/19 00:04 WBC RBC Hgb Hct MCV MCH MCHC RDW Std Deviation Plt Count MPV Immature Gran % (Auto) Neut % (Auto) Lymph % (Auto) [place] % (Auto) Eos % (Auto) Baso % (Auto) Immature Gran # (Auto) Neut # (Auto) Lymph # (Auto) [place] # (Auto) Eos # (Auto) Baso # (Auto) PT INR PTT (Actin FS) Specimen Type ARTERIAL Sample Site R RADIAL pH 7.42 pCO2 42 pO2 92 HCO3 26.8 H Base Excess 2.4 Oxyhemoglobin 96.1 ABG O2 Sat (Calculated) 13.0 L ABG O2 Saturation 99.2 ABG Carboxyhemoglobin 2.10 ABG Methemoglobin 1.0 Lance Test YES A-a O2 Difference 55.0 Total Hemoglobin 9.5 L Lactate 3.30 H Blood Gas Modality BI PAP Vent Mode BIPAP FiO2 % 28.0 Inspiratory BiPAP 10.0 Expiratory BiPAP 5.0 Sodium Potassium Chloride Carbon Dioxide Anion Gap BUN Creatinine Estimated GFR/1.73 m2 BUN/Creatinine Ratio Glucose Calculated Osmolality Calcium Total Bilirubin AST ALT Alkaline Phosphatase Troponin T Fst-B-Mhtyhqsvuod Pept Total Protein Albumin Globulin Albumin/Globulin Ratio Plasma Lactate Orders Category Date Time Status Resuscitation Status Routine Care 04/10/19 03:[address] THORAX W/CONTRAST [CT] Stat Exams 04/10/19 00:19 Taken ABG [RESP] Routine Lab 04/10/19 00:04 Completed BLOOD CULTURE [BLDCUL] Stat Lab 04/10/19 00:00 Results BNP [PRO B-NATRIURETIC PEPTIDE] Stat Lab 04/10/19 00:00 Completed CBC WITH ELECTRONIC DIFF [HEME] Stat Lab 04/10/19 00:00 Completed COMPREHENSIVE METABOLIC PANEL [CHEM] Stat Lab 04/10/19 00:00 Completed LACTATE, PLASMA [CHEM] Stat Lab 04/10/19 00:00 Completed PROTIME WITH INR [COAG] Stat Lab 04/10/19 00:00 Completed PTT [COAG] Stat Lab 04/10/19 00:00 Completed TROPONIN T Stat Lab 04/10/19 00:00 Completed URINALYSIS W/POSS RFLX CULT [URINALYSIS] Stat Lab 04/10/19 05:07 Ordered Lorazepam [Ativan] Med 04/10/19 03:53 Discontinued 1 mg IV NOW ONE Metoprolol [Lopressor] Med 04/10/19 03:52 Discontinued 5 mg IV NOW ONE Piperacillin/Tazobactam [Zosyn] 4.5 gm Med 04/10/19 01:51 Discontinued 0.9% Sodium Chloride Inj [Ns] 100 ml IV NOW Vancomycin 1 gm/Ns Med 04/10/19 01:51 Discontinued 1 gm in 250 ml IV NOW BIPAP Stat Oth 04/10/19 00:19 Active Transfer/Admit Order [TRANSFER] Routine Transfer 04/10/19 03:44 Ordered Patient placed on bipap due to BNP 8600 and resp distress. SHe was given 60IV lasix en route. Her CT chest is showing possible pneumonitis vs atelectasis vs infiltrate. Will cover for PNA given that she meets sepsis criteria. Spoke to patient and family about findings and they would like to remain DNR. Spoke to Dr Spence, change control manager for hospitalist who accepted patient for admission. Further orders to be placed by their team. Result Diagrams: 04/10/19 00:00 04/10/19 00:00 - EKG 1 Time of EKG reading by physician:: 23:49 EKG Read and Signed by:: Marilia Gilman EKG Interpretation (*Must complete 3 of following elements*): Abnormal Rate: 131 Rhythm: afib Comments: poor quality EKG, +artifact - CT/MRI 1 CT Study: Thorax Impression: See EMR Report - CONSULTS/PCP/HOSPITALIST Notification #1 *Consult/PCP/Hospitalist*: Dr Spence Time Discussed: 03:09 Consult Disposition: Admit Departure - Departure Date of Disposition Decision: 04/10/19 Time of Disposition Decision: 03:09 DIAGNOSIS: Hypoxia, Pleural effusion, History of lung cancer, Pneumonia, Respiratory distress, Anemia, Hyperglycemia Disposition: ADMITTED INPATIENT 09 Certified Medical Emergency: Emergent Condition: Stable - Critical Care Note This patient required my direct & personal management of CC.: Yes Total Time (mins): 75 Critical Care Statement: This patient required my direct personal management to treat or rule out processes, the absence of which, could potentiallly result in sudden, clinically significant life or limb threatening deterioration. Attestation - Physician/ GLADIS Attestation Patient care was provided by Advanced Practice Provider:: No The physician spent face to face time with patient:: Yes Advanced Practice Provider documentation review:: Supervising physician onsite and consulted in the evaluation and care of this patient. The physician did have a face to face encounter with the patient. This chart was documented by the indicated scribe, (Sammie Craft, Margarita) and accurately reflects the services I performed and decisions made by me, Marilia Gilman MD, as attested by the provider's signature.
[2019-04-10 00:47] LABS: BASO# 0.02 X1000 (0.0-0.2); BASO% 0.1 % (0.0-0.8); EOS# 0.07 X1000 (0.0-0.7); EOS% 0.5 % (0.0-10.0); HEMATOCRIT 31.9 % (37.0-47.0); HEMOGLOBIN 9.8 g/dL (12.0-16.0); IMM GRAN# 0.04 X1000 (0.0-0.04); IMM GRAN% 0.3 % (0.0-0.5); LYMPH# 1.09 X1000 (1.2-3.4); LYMPH% 7.6 % (20.5-51.1); MCH 26.7 PG (27-31); MCHC 30.7 g/dL (33-37); MCV 86.9 FL (81-99); MONO# 1.37 X1000 (0.11-0.59); MONO% 9.6 % (1.7-9.3); MPV 9.2 FL (7.4-10.4); NEUT% 81.9 % (42.2-75.2); PLT 373 X1000 (130-400); RBC 3.67 XMIL (4.2-5.4); RDW 15.7 % (11.5-14.5); WBC 14.29 X1000 (4.8-10.8)
[2019-04-10 01:11] LABS: INR 1.06; PROTIME 13.9 Seconds (11.0-16.0)
[2019-04-10 01:14] LABS: ALLEN TEST YES; BE 2.4 mmoll (-3.0-3.0); BLOOD TYPE ARTERIAL; HCO3-(ACT) 26.8 mmoll (20.0-26.0); O2HB 96.1 % (95.0-99.0); PCO2(98.6) 42 mmHg (35-45); PO2(98.6) 92 mmHg (60-100); SAMPLE BLOOD; SAO2 99.2 % (95.0-100.0); THB 9.5 g/dL (11.5-17.4); pH(98.6) 7.42 (7.35-7.45)
[2019-04-10 01:15] LABS: MODALITY BI PAP
[2019-04-10 01:22] LABS: PTT 28.2 Seconds (22.3-41.8)
[2019-04-10 01:25] LABS: AGAP 14; ALB/GLOB RATIO 1.5; ALKALINE PHOSPHATASE 163 U/L (32-104); BUN 13 mg/dL (8-22); CALCIUM 8.7 mg/dL (8.8-10.2); CHLORIDE 97 mmol/L (98-107); COSMO 280; CREATININE 0.6 mg/dL (0.5-0.9); ESTIMATED GFR > 60; GLUCOSE 234 mg/dL (70-104); GOT 17 U/L (10-30); GPT 10 U/L (10-36); POTASSIUM 4.3 mmol/L (3.5-5.1); SODIUM 136 mmol/L (136-145); TCO2 25 mmol/L (25-35); TOTAL BILIRUBIN 0.36 mg/dL (0.20-1.00); TOTAL PROTEIN 6.7 g/dL (6.3-8.3)
[2019-04-10] MEDS ORDERED: VANCOMYCIN 1 GM/NS 1 GM/250 ML IVPB IV ONE (01:51)
[2019-04-10] MEDS ORDERED: ZOSYN 4.5 GM in NS 100 ML IV ONE (01:51)
[2019-04-10] MEDS ORDERED: LOPRESSOR IV ONE (03:52)
[2019-04-10] MEDS ORDERED: ATIVAN IV ONE (03:53)
--- NOTE | 2019-04-10 05:17 | HISTORY AND PHYSICAL ---
PRIMARY CARE PROVIDER: Jovita Botello. CHIEF COMPLAINT: Shortness of breath. HISTORY OF PRESENT ILLNESS: Ms. Branham is an 83-year-old female with a history of lung cancer with bone metastasis. He had radiation a year ago with Dr. Tate, and had a recent PET scan with Dr. Bojorquez that did show a large right pleural effusion and was supposed to be set up for a thoracentesis yesterday, but that did not happen. A tumor in the right leg status post a more prophylactic fixation with a titanium trochanteric fixation nail system, which the patient has been at [facility]. She had most recently been discharged for acute hypoxemic respiratory failure, pulmonary edema, COPD exacerbation, right lower lobe pneumonia and sepsis as well as UTI. She comes back in today complaining of shortness of breath. She was given 60 of IV Lasix by EMS, and placed on BiPAP. She was found to have persistent pleural effusions as well as persistent pneumonia and atrial fibrillation. We were unable to obtain if it is atrial fibrillation with RVR on EKG, it does not really process the rhythm. She has been placed on BiPAP. She has a white count of 14, proBNP 8607, and a positive lactate of 3.6. We will admit her to the ICU. Continue BiPAP. Continue IV Lopressor as well as broad- spectrum antibiotics. We are going to hold off on fluids for now given her large right pleural effusion. PAST MEDICAL HISTORY: 1. Chronic atrial fibrillation. 2. Diabetes mellitus type 2. 3. Aortic valve replacement bovine. 4. COPD. 5. Lung cancer status post radiation with metastasis to the bone. PAST SURGICAL HISTORY: 1. Appendectomy. 2. Tonsillectomy. 3. Right femur resection with ej implantation. 4. Aortic valve replacement Bovine. SOCIAL HISTORY: She is currently at [facility] finishing out her rehab process. No tobacco, alcohol or illicit drugs. She quit smoking in 1995. FAMILY HISTORY: Negative for any cancers. MEDICATIONS: Home medications being compiled. ALLERGIES: No known drug allergies. REVIEW OF SYSTEMS: Twelve-point review of systems completely negative except for those mentioned in HPI. PHYSICAL EXAMINATION: VITAL SIGNS: Temperature 98.1 degrees, heart rate 130, respirations 24, blood pressure 142/117, O2 is 98% on BiPAP. GENERAL: Ms. Branham is a pleasant, but anxious appearing 83-year-old female who is lying on the stretcher with noticeable work of breathing, but currently in no acute distress. HEENT: Atraumatic, normocephalic. PERRL. NECK: Supple. Trachea midline. CARDIOVASCULAR: Irregularly irregular rhythm. LUNGS: Chest with bilateral rhonchi and rales especially in the right base. GASTROINTESTINAL: Soft. Nontender. Nondistended. Positive bowel sounds 4 quads lower extremities. Generalized edema. No signs of clubbing or cyanosis. NEUROLOGIC: The patient is awake and alert. She does follow commands. Moves all extremities. Answers questions appropriately. She appears anxious. DIAGNOSTICS: Chest CT shows persistent pneumonia as well as pleural effusion. LABORATORY DATA: White count 14, hemoglobin and hematocrit 9 and 31, and platelet count is 373,000. Sodium 136, potassium 4.3, BUN 13, creatinine 0.6, blood glucose 234, alkaline phosphatase 163, ProBNP is 8607, and plasma lactate 3.6. ASSESSMENT AND PLAN: 1. Acute hypoxemic respiratory failure secondary to pleural effusions and persistent pneumonia. We will continue with IV Lasix, broad-spectrum antibiotics for probable hospital-acquired pneumonia. Blood cultures have been obtained. 2. Persistent pneumonia. See #1. 3. Large right pleural effusion. We will set her up for ultrasound-guided thoracentesis this morning. We will continue IV Lasix. 4. Metastatic lung cancer to the bone. She finished radiation a year ago with Dr. Tate. She has had a ej placement secondary to right femur bone tumor. We will consult Dr. Bojorquez. 5. Chronic atrial fibrillation. Again, it is hard to obtain on EKG as she is in atrial fibrillation with RVR. We will continue on IV metoprolol. We will place her in the ICU. 6. Diabetes mellitus. We will place her on sliding scale with pattern blood sugars. 7. COPD. We will continue with bronchodilators and aggressive pulmonary toilet. 8. Code status DNR level 1. 9. Further recommendations to follow physician evaluation, laboratory and diagnostic data. Dictated by PEPITO Tom for Nader Spence MD I have performed a face to face diagnostic evaluation. Labs/xrays- reviewed. Exam- Chest- rhonchi, CV- regular. A/P- Pneumonia- Admit, check blood culture, IV ABX. Dr. Spence cc: Nader Spence MD [facility]
[2019-04-10] MEDS ORDERED: VANCOMYCIN IV PER PHARMACY MISC SCH (05:41)
[2019-04-10] MEDS ORDERED: ATROVENT NEB INH PRN (05:41)
--- NOTE | 2019-04-10 05:59 | EKG Report ---
Test Performed on : 04/10/2019 05:45:09 AM Test Reason : sob Blood Pressure : / mmHG Vent. Rate : 121 BPM Atrial Rate : 086 BPM P-R Int : 000 ms QRS Dur : 074 ms QT Int : 354 ms P-R-T Axes : 000 -06 069 degrees QTc Int : 502 ms Atrial fibrillation. with rapid ventricular response. with occasional ventricular-paced complexes Septal infarct , age undetermined Abnormal ECG When compared with ECG of 09-APR-2019 23:49, (Unconfirmed) Previous ECG has undetermined rhythm, needs review Unconfirmed Result
[2019-04-10 06:58] LABS: URINE SOURCE CLEAN CATCH
--- NOTE | 2019-04-10 07:01 | Diag Imaging Result Doc PS360 ---
CHEST-PORTABLE - 04/10/2019 INDICATION: Pneumonia COMPARISON: 03/24/2019 FINDINGS: There is severe airspace consolidation of the right lung base. This has worsened since prior. There is probably also a trace right pleural effusion. Stable cardiomegaly. The left lung is fairly clear. IMPRESSION: Severe worsening consolidation and small effusion at the right lung base. Electronically signed by Sumanth Cano 04/10/2019 6:58 AM
[2019-04-10 07:30] LABS: COLOR YELLOW; GLUCOSE URINE NEGATIVE (NEGATIVE); TURBIDITY URINE CLEAR (CLEAR); UR EPITHELIAL CELLS <10 /HPF (<10); URINE BACTERIA NEGATIVE /HPF; URINE RBC <10 /HPF (<10); URINE WBC <10 /HPF (<10)
[2019-04-10 07:31] LABS: BILIRUBIN URINE NEGATIVE (NEGATIVE); BLOOD URINE NEGATIVE (NEGATIVE); KETONE URINE NEGATIVE (NEGATIVE); LEUKOCYTES URINE NEGATIVE (NEGATIVE); NITRITE URINE NEGATIVE (NEGATIVE); PH URINE 5.5; PROTEIN URINE 30 mg/dL (NEGATIVE); SP GRAVITY URINE 1.029; UROBILINOGEN URINE NORMAL (NORMAL)
--- NOTE | 2019-04-10 08:13 | Diag Imaging Result Doc PS360 ---
CT THORAX W/CONTRAST - 04/10/2019 INDICATION: h/o cancer, pleural effusion, resp distress, PNA COMPARISON: 03/20/2019, 03/16/2019 FINDINGS: There is a moderate right and small left pleural effusion. The depth of the right pleural effusion is about 2.7 cm. There is a moderate pericardial effusion. There is an aortic valve replacement. There is significant cardiomegaly. There is a right hilar mass. This is grossly stable from prior. There is increasing atelectasis of the right lower lobe. There is diffuse pulmonary edema. There are right-sided rib fractures with some healing laterally. Ribs #4 and five. No other acute bony lesions. IMPRESSION: Moderate right and small left pleural effusions. Severe worsening opacification of the right lung base. Right hilar mass. This exam was performed using automated exposure control, adjustment of mA or kV according to patient size, and/or use of iterative reconstruction technique Electronically signed by Sumanth Cano 04/10/2019 8:11 AM
--- NOTE | 2019-04-10 09:24 | Diag Imaging Result Doc PS360 ---
CHEST-2 VIEWS - 04/10/2019 INDICATION: PLEURAL EFFUSION, THORACENTESIS COMPARISON: 6:11 AM FINDINGS: There has been successful drainage of the moderate right basilar pleural effusion. No pneumothorax. IMPRESSION: No complication. Electronically signed by Sumanth Cano 04/10/2019 9:21 AM
--- NOTE | 2019-04-10 09:40 | Diag Imaging Result Doc PS360 ---
US THORACENTESIS W/IMAGE GUIDE - 04/10/2019 INDICATION: large right pl effusion TECHNIQUE: The risks and benefits of the procedure were discussed with the patient. All questions were answered. Written and verbal informed consent was obtained. Overlying skin was prepped and draped in sterile fashion. Anesthesia was achieved with injection of 10 cc of 1% lidocaine. COMPARISON: Chest x-ray from earlier 04/10/2019 FINDINGS: Ultrasound scanning demonstrated a moderate right and small left pleural effusion. The right pleural effusion was drained successfully. 1 L was removed. The patient reported no symptoms from the procedure. Follow-up chest x-rays indicate no pneumothorax. IMPRESSION: Successful and uncomplicated ultrasound-guided right thoracentesis. Electronically signed by Sumanth Cano 04/10/2019 9:38 AM
[2019-04-10] MEDS: ATROVENT NEB INH SCH ×5 (09:54→23:26)
[2019-04-10] MEDS: LASIX IV SCH ×2 (10:25→18:45)
[2019-04-10] MEDS: HUMALOG SUBQ SCH ×4 (10:27→20:01)
[2019-04-10] MEDS: LOPRESSOR IV PRN ×2 (11:27→20:01)
--- NOTE | 2019-04-10 14:22 | PROGRESS NOTE ---
DATE: 04/10/2019 Ms Branham was admitted this morning. Came in with shortness of breath that came on fairly sudden but the patient actually says that it has been coming on for a while. Her primary care provider is Jovita Botello. An 83-year-old, female with history of lung cancer and bone metastasis. Had radiation a year ago per Dr. Tate. Recent PET scan per Dr. Bojorquez did show a large right pleural effusion. Supposed to be set up for a thoracentesis yesterday but it did not happen. Had a tumor in her right leg, status post prophylactic fixation with titanium trochanteric fixation nail system. The patient has been at [facility]. Most recent discharge for acute hypoxemic respiratory failure, pulmonary edema, COPD exacerbation, right lower lobe pneumonia, and sepsis, as well as UTI. Came back this morning, short of breath. Was given 60 mg of IV Lasix by the EMS and placed on a BiPAP. Found to have persistent pleural effusion as well as persistent pneumonia, probable pneumonia and atrial fibrillation. She is in chronic atrial fibrillation. Apparently, they took her for thoracentesis. PAST MEDICAL HISTORY: 1. Chronic atrial fibrillation. 2. Diabetes mellitus type 2. 3. Aortic valve replacement. 4. COPD. 5. Lung cancer, status post radiation for metastatic disease. PHYSICAL EXAMINATION: Today, she is feeling much better. She is awake and alert. She is very pale. Conjunctivae are with pallor. Gingiva with pallor. No distended neck veins. Lungs are clear in both lung vargas. She had diminished breath sounds in the right base. CT scan showed a small left pleural effusion, severe worsening of opacification of the right lung base, the right hilar mass. She had a thoracentesis done, large right pleural effusion, successfully drained 1 L. She says she feels much better. Breathing is much more comfortable. LABORATORY DATA: White count is 14,290, hematocrit is 31, platelet count 373,000. Lactate level was 3.6 when she came in. Sodium 136, potassium 4.3, chloride 97, BUN 13, creatinine 0.6. AST is 17, ALT is 10. White count 14,290, hematocrit is 31, hemoglobin 9.8, platelet count 373,000. Dr. Lindsay August is following. She is on vancomycin and cefepime. Getting Lasix 40 mg IV q.12. She is on ipratropium inhalation treatments. She is in chronic atrial fibrillation. Rate appears controlled. cc: Lance Colmenares MD
[2019-04-10] MEDS: MAXIPIME 1 GM in NS 50 ML IV SCH (16:01)
[2019-04-10] MEDS: CARDIZEM PO PRN ×2 (16:16→22:25)
[2019-04-11] MEDS: LOPRESSOR IV PRN ×2 (01:10→07:44)
[2019-04-11] MEDS: MAXIPIME 1 GM in NS 50 ML IV SCH ×2 (03:35→15:07)
[2019-04-11] MEDS: ATROVENT NEB INH SCH ×6 (03:38→23:26)
[2019-04-11] MEDS: CARDIZEM PO PRN ×2 (04:31→10:15)
[2019-04-11 05:49] LABS: BASO# 0.02 X1000 (0.0-0.2); BASO% 0.3 % (0.0-0.8); EOS# 0.13 X1000 (0.0-0.7); EOS% 1.7 % (0.0-10.0); HEMATOCRIT 31.5 % (37.0-47.0); HEMOGLOBIN 9.6 g/dL (12.0-16.0); LYMPH# 1.07 X1000 (1.2-3.4); MCH 26.4 PG (27-31); MCHC 30.5 g/dL (33-37); MCV 86.8 FL (81-99); MONO# 1.04 X1000 (0.11-0.59); MONO% 13.6 % (1.7-9.3); MPV 9.1 FL (7.4-10.4); NEUT# 5.37 X1000 (1.4-6.5); NEUT% 70.4 % (42.2-75.2); PLT 280 X1000 (130-400); RBC 3.63 XMIL (4.2-5.4); RDW 15.3 % (11.5-14.5); WBC 7.63 X1000 (4.8-10.8)
[2019-04-11] MEDS: HUMALOG SUBQ SCH ×4 (06:01→20:15)
[2019-04-11] MEDS: LASIX IV SCH ×2 (06:04→18:19)
[2019-04-11 06:37] LABS: AGAP 13; ALB/GLOB RATIO 1.3; ALBUMIN 3.3 g/dL (3.5-5.0); ALKALINE PHOSPHATASE 137 U/L (32-104); BUN 12 mg/dL (8-22); CHLORIDE 94 mmol/L (98-107); COSMO 274; CREATININE 0.5 mg/dL (0.5-0.9); ESTIMATED GFR > 60; GLUCOSE 98 mg/dL (70-104); GOT 14 U/L (10-30); GPT 8 U/L (10-36); POTASSIUM 3.3 mmol/L (3.5-5.1); SODIUM 137 mmol/L (136-145); TCO2 30 mmol/L (25-35); TOTAL BILIRUBIN 0.73 mg/dL (0.20-1.00); TOTAL PROTEIN 5.9 g/dL (6.3-8.3)
[2019-04-11] MEDS: CARDIZEM 100 MG/NS 100 MG/100 ML IVPB IV SCH (10:37)
[2019-04-11] MEDS: LOPRESSOR PO SCH ×3 (11:34→19:18)
--- NOTE | 2019-04-11 12:42 | EKG Report ---
Test Performed on : 04/11/2019 11:50:57 AM Test Reason : afib Blood Pressure : / mmHG Vent. Rate : 122 BPM Atrial Rate : 080 BPM P-R Int : 000 ms QRS Dur : 084 ms QT Int : 326 ms P-R-T Axes : 000 -13 105 degrees QTc Int : 464 ms Atrial fibrillation. with rapid ventricular response. with premature ventricular or aberrantly conduc matt complexes. Septal infarct , age undetermined Abnormal ECG When compared with ECG of 10-APR-2019 05:45, (Unconfirmed) Atrial fibrillation. has replaced Electronic ventricular pacemaker Confirmed by Marquise Moore MD ([id number]) on 04/11/2019 3:08:19 PM
[2019-04-11] MEDS ORDERED: KLOR-CON PO ONE (14:51)
[2019-04-11] MEDS: VANCOMYCIN 1 GM/NS 1 GM/250 ML IVPB IV SCH (17:19)
--- NOTE | 2019-04-11 18:18 | ECHO REPORT ---
ORDER DATE: 04/11/2019 INTERPRETING PHYSICIAN: Jimmy Holman MD INDICATION: Patient with atrial fibrillation with rapid response. Cancer of the lung, metastatic to the femur with pericardial effusion noted on CT of the chest. Status post TAVR. Right pleural effusion. s/p thoracentesis. M-MODE MEASUREMENTS: Left ventricle end diastole: 2.8 cm. Left ventricle end systole: 1.5 cm. Posterior wall: 1.2 cm. Interventricular septum: 1.2 cm. The study was difficult. The patient is in atrial fibrillation with rapid response. The rate at times shows 140 beats per minute or 150 beats per minutes. This study is really not adequate because of that. Nevertheless, there is a small to medium sized pericardial effusion that appears to be loculated posteriorly. It is really challenging to separate pleura from pericardium. There is like a layer of organized stuff around the right ventricular free wall and also the left ventricular free wall. Using M-Mode, there is suggestion of compression of the right ventricle during diastole. The right atrium is very difficult to assess because of proximity to a large pleural effusion. The aortic valve is a prosthetic valve. The maximum gradient across this valve is 17 mmHg. The mean gradient is 10 mmHg. That is consistent with normal function. The left ventricle shows excellent contractility with ejection fraction of 75%. I do not believe that there is compression or dilatation of the right-sided chambers. The left atrium is moderately enlarged. The mitral valve shows a mild to moderate degree of regurgitation. There is a single filling wave. The tricuspid valve shows a moderate degree of regurgitation. The pulmonary pressure is estimated at 30 mmHg. The inferior vena cava is not dilated and it shows good collapse. The left septum is markedly enlarged. This study suggests that this patient may be in a pre-tamponade type of physiology, however, she is in atrial fibrillation with rapid response, with a large right pleural effusion adjacent to pericardium. Clinical correlation is strongly recommended. Consider repeating the study when the patient is hemodynamically more stable,i.e. after optimization of heart rate and intravascular volume. cc: Jimmy Holman MD MTDD
--- NOTE | 2019-04-11 18:23 | HEMO/ONC CONSULTATION ---
DATE: 04/10/2019 CHIEF COMPLAINT: Lung cancer with bony metastasis. HISTORY OF PRESENT ILLNESS: Ms. Branham is a pleasant, 83-year-old female, known to Dr. Bojorquez and we were recently consulted during last hospitalization secondary to bony metastasis to the patient's right femur. The patient has a history of lung cancer and was unable to undergo biopsy at the time of diagnosis secondary to multiple comorbidities. The patient was seen in consultation by Dr. Tate and underwent radiation therapy and has been followed by Dr. Tate since that time. The patient was discharged to rehabilitation but presented to [facility] emergency department secondary to shortness of breath. Upon presentation, the patient was found to have persistent pleural effusion, pneumonia and atrial fib fibrillation. Additionally she was found to have a pericardial effusion. The patient was placed in ICU for close monitoring. We are consulted as the patient is known to us secondary to bony metastasis with a history of lung cancer. PAST MEDICAL HISTORY: 1. Chronic atrial fibrillation. 2. Diabetes mellitus type 2. 3. COPD. 4. Lung cancer status post radiation and now with metastasis to the bone. PAST SURGICAL HISTORY: 1. Appendectomy. 2. Tonsillectomy. 3. Resection of right femur with ej implantation. 4. Aortic valve replacement. SOCIAL HISTORY: Patient does not use tobacco alcohol or illicit drugs. She is a resident at [facility] at this time. FAMILY HISTORY: Negative for hematologic or oncologic disease. MEDICATIONS ON ADMISSION: Medication reconciliation is currently being compiled. ALLERGIES: The patient has no known drug allergies. REVIEW OF SYSTEMS: A 14 point review of systems was obtained and is negative except for mentioned in the HPI. PHYSICAL EXAMINATION: General: Ms. Branham is a 83-year-old female lying supine in bed in no immediate distress. Vital Signs: Temperature 99 degrees, blood pressure 123/84, heart rate 122, respirations 32, O2 saturation 98% on 3 L nasal cannula O2. HEENT: Normocephalic, atraumatic. Mucous membranes are slightly pale and moist. Sclerae anicteric. Extraocular movements intact. Neck: Supple. Lungs: With rubs and wheezes throughout. Cardiovascular: S1, S2 is heard. The patient is tachycardic. Abdomen: Soft, nondistended, nontender. Bowel sounds positive all quadrants. No rebound or guarding noted. Extremities: The patient has right lower extremity trace edema. Dermatologic: No rashes, bruises or lesions. Neurologic: The patient is awake, alert, and oriented x3. She has no focal deficits. LABORATORY DATA: Hemoglobin 9.8, hematocrit 31.9. White blood cell count 14.29, platelets 373,000. Sodium 136, potassium 4.3, chloride 97, CO2 is 25, BUN 13, creatinine 0.6, and glucose is 234, calcium 8.7, alkaline phosphatase 163, and proBNP is 8607. ASSESSMENT AND PLAN: 1. History of lung cancer now with bony metastasis to the right femur. She is status post resection with ej implantation. She is undergoing radiation therapy with Dr. Tate at this time. She is scheduled to begin OPDIVO on 04/18/2019. We will treat when the patient's acute illness is improved. 2. Probable chronic obstructive pulmonary disease exacerbation. We would continue current therapy. 3. Pericardial effusion. Cardiology is currently consulted and following. No pericardial window is planned at this time. 4. Congestive heart failure exacerbation. ProBNP is elevated at 8607. The patient is stable. 5. Anemia. Hemoglobin is stable at 9.8. We will continue to monitor. 6. Hyperlipidemia stable. We will follow along with you and make further recommendations pending outcomes. The above reflects the history, exam, assessment and plan of Dr. Bojorquez. Dictated by PEPITO Brown for Jose Juan Bojorquez MD cc: PEPITO Brown MD
[2019-04-11] MEDS ORDERED: LR 250 ML IV ONE (18:36)
[2019-04-11] MEDS ORDERED: ALBUMIN 25% IV ONE (18:36)
[2019-04-11] MEDS ORDERED: LR 1,000 ML IV SCH (18:45)
--- NOTE | 2019-04-11 20:51 | CARDIOLOGY CONSULTATION ---
DATE: 04/11/2019 CONSULTATION REQUESTED BY: Hospitalist service. REASON FOR CONSULTATION: Atrial fibrillation, pericardial effusion. HISTORY: Mrs. Branham is a very pleasant 83-year-old female patient of mine. I had seen her last time at my office back in November. Since that time, the patient has been admitted to the hospital because of impending pathological fracture of the right femur. The patient at this time presented to the ER on April 10 just before midnight because the patient was noted to be increasingly short of breath. She just was very frightened and afraid that she could quit breathing any moment. Upon presentation, they did a chest CT that shows moderate right and small left pleural effusions with severe worsening opacification of the right lung base. There is moderate pericardial effusion reported. They proceeded to perform a thoracentesis yesterday under ultrasound guidance. They removed a 1 L of fluid. This morning, she is breathing more comfortably. The patient is known to have atrial fibrillation, and she was found to be in rapid atrial fibrillation, and therefore they felt that consultation was required. The patient denies having any pain at this time. Following her femur surgery, which was done by Dr. Ferguson, I believe, on March 14, she had some significant swelling of the leg that has gradually gone down. The pathology of the bone showed evidence of metastatic adenocarcinoma more than likely lung primary. The patient admits to having some dizziness whenever she gets up from bed rapidly. PAST MEDICAL HISTORY: Her past history is positive for aortic stenosis. The patient has received previously a transaortic valve replacement procedure, 11/13/2013, with good clinical results. The patient has had paroxysmal atrial fibrillation. She suffered a major stroke with left hemiparesis a few years ago and that has really limited her from performing physical activity. The patient has been found to have a suspicion for malignant lesion in the lung several months ago, and decision was made to treat her with radiation therapy. I do not believe they had tissue diagnosis until just recently when they got the results of the bone biopsy. The patient has had moderate coronary artery disease for which she was considered a candidate for percutaneous coronary intervention. At some point, decision was made to just treat her conservatively for the lesion. She has not complained of angina pectoris. She has hypertension, hyperlipidemia. PAST SURGICAL HISTORY: Besides the transaortic valve replacement, she has had colon surgery, removal of moles. SOCIAL HISTORY: She is . She is retired. She has children. Her of 66 years is in the room with her niece. She is not a smoker. FAMILY HISTORY: Positive for stroke. HOME MEDICATIONS: At the time of the present admission included atorvastatin 40 mg at bedtime, Plavix 75 daily, aspirin 81 daily, Levaquin 500 daily, Ativan 0.5 as needed, metoprolol 100 twice a day, omeprazole 20 mg at bedtime, lorazepam 0.5 mg twice a day, Xopenex. ALLERGIES: She has no allergies. NOTE: During recent admission in February, she received an echocardiogram that showed a relatively small pericardial effusion with normal ejection fraction. PHYSICAL EXAMINATION: Vital signs: Right now blood pressure is 127/85, pulse 120, respirations 20, temperature 98.1. General: Elderly, in no distress, basically with same mental status that I have seen her in the past 3 or 4 years. No changes there. She is oriented, speaks properly. No cognitive impairment. She is just elderly, a little pale. HEENT: Unremarkable. Chest: Diminished breath sounds in the right lung. Cardiovascular: Heart sounds are irregularly irregular. I do not hear any loud systolic murmur when I examine her. Abdomen: Soft. Extremities: Showed really no edema. Her right thigh is slightly tender. Neurological exam: She has basically hemiparesis of the left side of her body. Otherwise, she is alert and oriented x3. BLOOD WORK: Today hemoglobin is 9.6 g, hematocrit 31.5. Sodium 137, potassium 3.3, BUN 12, creatinine 0.5. Albumin is 3.3. IMPRESSION: 1. Patient who presents with increasing dyspnea due to a large right pleural effusion that has been drained. The possibility of this being malignant or metastatic is highly likely. She is status post thoracentesis. 2. History of permanent atrial fibrillation with rapid response now. It probably is secondary to the acute illness with a right pleural effusion. 3. 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 She is status post radiation therapy. 4. Severe aortic stenosis status post transcatheter aortic valve replacement in October of 2013. This is really not a major issue at this time. 5. History of moderate coronary artery disease treated conservatively. 6. History of previous stroke with left hemiplegia. 7. Hyperlipidemia and hypertension. RECOMMENDATIONS: At this time, we will adjust her medications. We will put her back on her usual doses of beta blockers. We will do a gentle up titration. We will give her Cardizem to optimize the heart rate, and we will take it from there. I would suggest to keep the patient in the ICU. We have done a followup echocardiogram today to check on whether or not the pericardial effusion is worse than before. I believe that this effusion is unchanged. I do not see definite indication of tamponade; however, I had a brief conversation with Dr. Jakob Betts from the general surgical team. I showed him the echocardiogram, and I told him if this gets any worse, we may request a diagnostic pericardiotomy; however, at this time again, even though there is some RV free wall compression during diastole, I do not believe that she is close to tamponade. We need to optimize intravascular status and heart rate and repeat echo. We will follow her and further advice will be forthcoming . cc: Jimmy Holman MD MTDD
[2019-04-12] MEDS: LOPRESSOR PO SCH ×4 (01:12→20:16)
[2019-04-12] MEDS: ATROVENT NEB INH SCH ×6 (02:31→23:35)
[2019-04-12] MEDS ORDERED: LASIX IV ONE (02:56)
[2019-04-12] MEDS: ATIVAN IV PRN (03:11)
[2019-04-12] MEDS: MAXIPIME 1 GM in NS 50 ML IV SCH ×2 (03:39→16:42)
[2019-04-12] MEDS: CARDIZEM 100 MG/NS 100 MG/100 ML IVPB IV SCH ×2 (03:39→10:46)
[2019-04-12] MEDS: LASIX IV SCH ×2 (06:30→18:37)
[2019-04-12] MEDS: HUMALOG SUBQ SCH ×4 (06:30→20:15)
--- NOTE | 2019-04-12 12:20 | CARDIOLOGY PROGRESS NOTE ---
DATE: 04/12/2019 SUBJECTIVE: Ms Branham reports she is doing well. She did have an episode of shortness of breath last night. Denies any overt palpitations. She is tolerating oral intake. PHYSICAL EXAMINATION: Vital signs: She is afebrile. Her heart rates have been somewhat elevated in the 100s to 110s. Her blood pressure most recently is 122/67. General: She is in no acute distress. Cardiovascular: She is in an irregularly irregular rhythm consistent with her atrial fibrillation which is present on the monitor. She has chronic atrial fibrillation. She has no lower extremity edema. Chest: Sounds relatively clear. She has some mild expiratory wheezes on the right but no increased work of breathing. Abdomen: Soft, nontender. PERTINENT DATA: She has no new laboratories today. Notably, she had a thoracentesis but we do not have any cytology back from that. Her echocardiogram showed a small to medium-sized pericardial effusion that did not seem to be significantly changed from previous. ASSESSMENT: Ms. Branham is an 83-year-old female with metastatic lung cancer. She has a pericardial effusion. PLAN: Pericardial effusion is relatively stable. She does not seem to be acutely in tamponade. I will make a dose adjustment in her metoprolol to 50 q.8. At home, she was on 100 b.i.d. She also has p.r.n. Lopressor ordered. Her rate is likely reactive to the other issues going on with her. We will check laboratories in the morning. She does not have any chemistries ordered today. cc: Dallas Redd MD
--- NOTE | 2019-04-12 12:45 | PROGRESS NOTE ---
DATE: 04/12/2019 SUBJECTIVE: The patient notes that she had an eventful night last night. States she had increased work of breathing, cough and shortness of breath. Denies any current palpitations or chest pain. PHYSICAL EXAMINATION: Vital signs: She is afebrile, pulse 115 to 130s, respiratory 26, blood pressure 130/98. General: Patient is pleasant. She is in no respiratory distress presently. She is sitting up in the bed, talking with her and her daughter. HEENT: Normocephalic. Neck: Supple. Cardiovascular: Irregular rate, irregular rhythm. Chest: Decreased but equal breath sounds. No wheezing. Abdomen: Soft, nondistended. Extremities: Moves all extremities. Neurologic: No changes. ASSESSMENT: 1. Chronic atrial fibrillation with current rapid rate. 2. Severe aortic stenosis. 3. 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 4. Hypoxic respiratory failure, acute on chronic. 5. Persistent pneumonia. 6. Large right pleural effusion. 7. Chronic obstructive pulmonary disease. 8. Diabetes. PLAN: She currently is on metoprolol and Cardizem p.o. as well as Cardizem IV. She is on cefepime, vancomycin and Lasix IV. We will continue to follow. Hopefully we can get her heart rate controlled soon and she can transition out to the floor. We will continue antibiotics and continue to follow. cc: Adan Hurd MD
[2019-04-13] MEDS: MAXIPIME 1 GM in NS 50 ML IV SCH ×2 (03:30→15:56)
[2019-04-13] MEDS: VANCOMYCIN 1 GM/NS 1 GM/250 ML IVPB IV SCH (03:30)
[2019-04-13] MEDS: ATROVENT NEB INH SCH ×6 (03:35→23:20)
[2019-04-13] MEDS: CARDIZEM 100 MG/NS 100 MG/100 ML IVPB IV SCH (04:01)
[2019-04-13] MEDS: LOPRESSOR PO SCH ×3 (04:01→19:03)
[2019-04-13] MEDS: LASIX IV SCH ×2 (06:19→19:03)
[2019-04-13] MEDS: HUMALOG SUBQ SCH ×4 (06:22→20:20)
[2019-04-13 06:45] LABS: AGAP 14; BUN 10 mg/dL (8-22); CALCIUM 8.1 mg/dL (8.8-10.2); CHLORIDE 94 mmol/L (98-107); COSMO 277; CREATININE 0.5 mg/dL (0.5-0.9); ESTIMATED GFR > 60; GLUCOSE 136 mg/dL (70-104); MAGNESIUM 1.3 mg/dL (1.5-2.7); SODIUM 138 mmol/L (136-145); TCO2 30 mmol/L (25-35)
--- NOTE | 2019-04-13 10:48 | PROGRESS NOTE ---
DATE: 04/13/2019 SUBJECTIVE: The patient was admitted by Dr. Jordy Doe. She is a patient of Jovita Botello. This is an 83-year-old female with history of lung cancer, bone metastasis, radiation a year ago per Dr. Tate. Recent PET scan per Dr. Bojorquez did show a right pleural effusion, and was supposed to be set up for thoracentesis, but this did not happen. Tumor in the right lung, status post prophylactic fixation of the titanium trochanteric nail system for the hip, and went to [facility], recently has been discharged. She came in for acute hypoxemic respiratory failure, pulmonary edema, COPD exacerbation, right lower lobe pneumonia, and sepsis, as well as UTI. Came in complaining of shortness of breath. Given 60 mg IV of Lasix, placed on BiPAP, found to have persistent pleural effusion as well as persistent pneumonia and atrial fibrillation. Lactate level was high, so she was given IV Lasix, broad-spectrum antibiotic. Large pleural effusion. Had an ultrasound-guided thoracentesis the morning of admission. She seems to feel about the same today. OBJECTIVE: Vital Signs: Temp 98.5 degrees, pulse 106, respirations 29, blood pressure 131/101. HEENT: Pupils are equal and round. Lungs: Clear in all lung vargas anterolateral. Cardiovascular: Regular rhythm and rate without murmur or S3. Abdomen: Soft. Skin: Warm and dry. Urine output is 2800 mL. ASSESSMENT AND PLAN: 1. Chronic atrial fibrillation. Controlling her rate. Seems to be under good control. 2. Severe aortic stenosis. 3. Adenocarcinoma of the lung with metastasis to the bone. 4. Hypoxemic respiratory failure, acute on chronic, with pleural effusion. 5. Persistent pneumonia, treating with antibiotics. 6. Large right pleural effusion. 7. Chronic obstructive pulmonary disease. 8. Diabetes mellitus type 2. Sugar is under pretty good control. LABORATORY DATA: Hematocrit 31, hemoglobin 9.6. Sodium 138, potassium 3.0, BUN 10, creatinine 0.5. Blood sugars look to be well controlled. REVIEW OF ORDERS: On metoprolol 50 mg p.o. every 8 hours, getting Cardizem 30 mg p.o. every 6 hours p.r.n., presently on, I believe, a Cardizem drip, Lasix 40 mg IV every 12 hours, cefepime 1 gram every 12 hours, vancomycin 1 gram every 36 hours. She is on a diabetic diet. Review of her lab from this morning, I do not see any significant change. cc: Lance Colmenares MD
[2019-04-13] MEDS ORDERED: POTASSIUM CHLORIDE 20 MEQ/SWI 20 MEQ/100 ML IVPB IV SCH (11:00)
[2019-04-13] MEDS ORDERED: MAGNESIUM SULFATE 2 GM/S.W.I. 2 GM/50 ML IVPB IV ONE (12:16)
[2019-04-13] MEDS ORDERED: KLOR-CON POWDER PACKET PO ONE (12:33)
--- NOTE | 2019-04-13 13:46 | CARDIOLOGY PROGRESS NOTE ---
DATE: 04/13/2019 SUBJECTIVE: Ms. Branham reports she is roughly stable from yesterday from the standpoint of symptomatology of shortness of breath. She is not having any pain complaints. She is tolerating oral intake. PHYSICAL EXAMINATION: Vital Signs: The patient is afebrile. Her heart rate is in the 90s to low 100s. Blood pressure 131/101. General: She is in no acute distress. Cardiovascular: She is in an irregularly irregular rhythm, which is consistent with her known chronic atrial fibrillation. She has no lower extremity edema. Chest: Somewhat coarse. No expiatory wheezes. No increased work of breathing. Abdomen: Soft, nontender. PERTINENT DATA: Her potassium is 3 today, with a magnesium level of 1.3. BUN and creatinine are 10 and 0.5. ASSESSMENT: Ms. Branham is an 83-year-old female who presented with a pleural effusion, has a history of metastatic lung cancer. In addition, she has a pericardial effusion. PLAN: Previously, the pericardial effusion was thought to be relatively stable. She does not appear to clinically be in tamponade. I will increase her metoprolol to 50 every 6 hours, which is more in line with her home dosing. Hopefully, we can get her weaned off of the diltiazem. Dr. Holman will be back to continue following the patient tomorrow. cc: Dallas Redd MD
--- NOTE | 2019-04-13 14:57 | PROGRESS NOTE ---
DATE: 04/13/2019 Ms Branham states she feels about the same. She was awake, comfortable. Denied any pain. Feels generally pretty weak. Temperature 98.5 degrees, pulse 106, respirations 29, blood pressure 139/101. Pupils are equal and round. Lungs are clear in all lung vargas anterior lateral posterior. Cardiovascular. Regular rhythm and rate without murmur or S3. Abdomen is soft. Skin is warm and dry. Blood sugar 164, 146 and 221. ASSESSMENT AND PLAN: 1. She had a pleural effusion which was tapped, history metastatic lung cancer. She has a pericardial effusion which what appears to be stable. Does not appear to have any clinical evidence of tamponade. Cardiology following. They have increased her metoprolol 50 mg p.o. q.6 hours and weaned her off the Cardizem. 2. Note her monitor shows she is in atrial fibrillation, rate appears to be controlled. 3. Severe aortic stenosis. 4. Persistent pneumonia. Continue current antibiotics. Clinically the pneumonia appears to be getting better. 5. Chronic obstructive pulmonary disease . 6. Diabetes mellitus type 2. Sugars appear under good control. Hematocrit 31, hemoglobin 9.6 which is stable, white count 7630, platelet count 280,000. Electrolytes look good. Potassium was 3.0, magnesium was 1.3 so we have supplemented both of these. Dr. Redd ordered some potassium, some magnesium. cc: Lance Colmenares MD
[2019-04-14] MEDS: LOPRESSOR PO SCH ×4 (00:22→17:31)
[2019-04-14] MEDS: CARDIZEM 100 MG/NS 100 MG/100 ML IVPB IV SCH ×2 (00:22→20:46)
[2019-04-14] MEDS: ATROVENT NEB INH SCH ×6 (03:31→23:23)
[2019-04-14] MEDS: MAXIPIME 1 GM in NS 50 ML IV SCH ×2 (03:38→15:34)
[2019-04-14] MEDS: LASIX IV SCH ×2 (05:27→17:27)
[2019-04-14] MEDS: HUMALOG SUBQ SCH ×4 (06:11→20:47)
--- NOTE | 2019-04-14 07:58 | CARDIOLOGY PROGRESS NOTE ---
DATE: 04/14/2019 CHIEF COMPLAINT: Shortness of breath, cough, irregular heartbeat. SUBJECTIVE: Ms. Branham is still short of breath. Her heart rate is better controlled. Her blood pressure is more stable. Her blood work from yesterday showed that her BUN and creatinine were normal. Primary service has already replaced potassium which was low yesterday. OBJECTIVE: Vital signs: Today, blood pressure is 119/88, pulse 100, respirations 24, temperature is 98.7. The patient really has no new complaints. Her dyspnea is about the same. She has no chest pain. She is really awake. She is cooperative. She acknowledges me. HEENT: Unremarkable. She has wet sounds in the upper airways. Chest: Diminished breath sounds bilaterally with coarse rhonchi. It seems to be more diminished in the right lung field. Heart sounds are irregularly irregular. I do not hear any definite gallop or murmur. Abdomen is nontender. Extremities showed no edema. Neurologic: Follows commands. She has left hemiplegia. IMPRESSION: 1. The patient has chronic/permanent atrial fibrillation. Recently developed rapid response in connection with right pleural effusion and some pericardial effusion. 2. Metastatic adenocarcinoma of the lung to bone and probably to lung/pleura. Cannot rule out also metastatic disease spreading into the pericardium. 3. 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 4. History of stroke with left hemiplegia, markedly impaired functional status before admission to the hospital. 5. History of hypertension. 6. History of moderate coronary disease. RECOMMENDATIONS: At this time, I would suggest aggressive chest physiotherapy to try to help her eliminate phlegm from the right chest. Given this patient's premorbid status that was quite limited and her anticipated dire prognosis and expected poor outcome from the metastatic disease, I would strongly recommend that a discussion take place with the primary service, the Oncology Service and the family to decide whether or not she is made Hospice. If there is a desire to continue aggressive management, then I do strongly recommend that we invite a regional telecommunications specialist in the case to help us handle her respiratory failure. cc: Jimmy Holman MD
--- NOTE | 2019-04-14 10:19 | PROGRESS NOTE ---
DATE: 04/14/2019 SUBJECTIVE: Ms. Branham says she feels about the same as yesterday. She is getting some food down. Her bowels are moving. She is not coughing much but she did cough while I was there and it sounds loose. Not coughing up much in the way of sputum. OBJECTIVE: Vital Signs: Temp 98.7 degrees, pulse 90, respirations 20, blood pressure 129/64. HEENT: Pupils are equal and round. Lungs: Lungs are clear in all lung avrgas. Cardiovascular: Regular rhythm and rate without murmur or S3. Abdomen: Soft. Skin: Warm and dry. Urine output is 2500 mL. ASSESSMENT AND PLAN: 1. Patient with chronic permanent atrial fibrillation. Recently developed rapid response connection with right pleural effusion and pericardial effusion. The rate is controlled at present. 2. Metastatic adenocarcinoma of the lung, probably to the lung and pleura, and could not rule out suspect metastasis to the pericardium. 3. Status post transaortic aortic valve replacement with stable function and prosthetic aortic valve. 4. History of stroke, left hemiplegia, marked and impaired function. She is where she was on admission. 5. Blood pressure controlled. 6. History of moderate coronary artery disease. I want to try and get her up out of bed and get her coughing. 7. She has pneumonia. We have been treating. Continue present antibiotics and pulmonary toilet. 8. Diabetes mellitus type 2. Sugars appear to be under good control. REVIEW OF HER ORDERS: I do not see any change at this point. She is still on Cardizem drip. We will get Physical Therapy involved and try and get her up in a chair. cc: Lance Colmenares MD
--- NOTE | 2019-04-14 10:40 | Diag Imaging Result Doc PS360 ---
CHEST-PORTABLE - 04/14/2019 INDICATION: pneumonia COMPARISON: 04/10/2019 FINDINGS: There has been increase in size of the right pleural effusion which is still small to moderate. There is accentuated opacification at the right hilum. Stable pulmonary vascular congestion. Stable cardiomegaly. No significant left-sided pleural effusion. IMPRESSION: Worsening aeration of the right lung. Electronically signed by Sumanth Cano 04/14/2019 10:37 AM
[2019-04-14] MEDS: VANCOMYCIN 1 GM/NS 1 GM/250 ML IVPB IV SCH (18:44)
[2019-04-15] MEDS: LOPRESSOR PO SCH ×5 (00:37→23:35)
[2019-04-15] MEDS: ATROVENT NEB INH SCH ×6 (03:33→22:59)
[2019-04-15] MEDS: MAXIPIME 1 GM in NS 50 ML IV SCH ×2 (04:22→15:59)
[2019-04-15] MEDS: HUMALOG SUBQ SCH ×4 (06:21→20:41)
[2019-04-15] MEDS: LASIX IV SCH ×2 (06:25→17:30)
[2019-04-15 08:27] LABS: MAGNESIUM 1.5 mg/dL (1.5-2.7)
[2019-04-15 08:29] LABS: ESTIMATED GFR > 60
[2019-04-15 08:31] LABS: AGAP 13; ALB/GLOB RATIO 1.1; ALBUMIN 3.3 g/dL (3.5-5.0); ALKALINE PHOSPHATASE 116 U/L (32-104); BUN 11 mg/dL (8-22); CALCIUM 8.5 mg/dL (8.8-10.2); CHLORIDE 85 mmol/L (98-107); COSMO 259; CREATININE 0.6 mg/dL (0.5-0.9); GLUCOSE 147 mg/dL (70-104); GOT 10 U/L (10-30); GPT 5 U/L (10-36); POTASSIUM 3.2 mmol/L (3.5-5.1); SODIUM 128 mmol/L (136-145); TCO2 30 mmol/L (25-35); TOTAL BILIRUBIN 0.99 mg/dL (0.20-1.00); TOTAL PROTEIN 6.3 g/dL (6.3-8.3)
[2019-04-15 08:36] LABS: ALLEN TEST NO; BE 9.4 mmoll (-3.0-3.0); BLOOD TYPE ARTERIAL; HCO3-(ACT) 32.2 mmoll (20.0-26.0); METHB 1.2 % (0.0-1.5); MODALITY CANNULA; O2(CT) 14.5 mL/dL (15.0-23.0); O2HB 95.5 % (95.0-99.0); PCO2(98.6) 37 mmHg (35-45); PO2(98.6) 84 mmHg (60-100); SAMPLE BLOOD; SAO2 98.9 % (95.0-100.0); THB 10.7 g/dL (11.5-17.4); pH(98.6) 7.55 (7.35-7.45)
[2019-04-15] MEDS: CARDIZEM 100 MG/NS 100 MG/100 ML IVPB IV SCH (10:38)
[2019-04-15] MEDS ORDERED: KLOR-CON PO ONE (12:18)
[2019-04-15] MEDS ORDERED: MAGNESIUM SULFATE 2 GM/S.W.I. 2 GM/50 ML IVPB IV ONE (12:23)
[2019-04-15] MEDS ORDERED: POTASSIUM CHLORIDE 20% LIQUID PO ONE (12:29)
[2019-04-15] MEDS ORDERED: CALMOSEPTINE OINTMENT TOP PRN (16:10)
--- NOTE | 2019-04-15 16:44 | Diag Imaging Result Doc PS360 ---
CHEST-PORTABLE - 04/15/2019 INDICATION: dyspnea COMPARISON: 04/14/2019 FINDINGS: Stable right perihilar opacity. Stable small to moderate bilateral pleural effusions right greater than left. Stable significant cardiomegaly and pulmonary vascular congestion. Stable hazy infiltrate in the right lung base. IMPRESSION: No significant change from prior. Electronically signed by Sumanth Cano 04/15/2019 4:42 PM
[2019-04-15] MEDS: MUCOMYST 20% INH SCH (19:33)
[2019-04-15] MEDS: VANCOMYCIN 1 GM/NS 1 GM/250 ML IVPB IV SCH (19:44)
--- NOTE | 2019-04-15 20:31 | PULMONOLOGY CONSULTATION ---
DATE: 04/15/2019 REQUESTING PHYSICIAN: DR. Magana. REASON FOR CONSULTATION: Pleural effusions, with metastatic lung cancer. HISTORY OF PRESENT ILLNESS: Ms. Branham is an 83-year-old white female with a 45 pack-year history for tobacco, who has been followed in my clinic since 2010. The patient had a small pulmonary nodule at that time with moderate COPD. The patient's nodules were followed expectantly over time. The patient had dyspnea with minimal exertion and was limited due to severe aortic valvular disease. She underwent a transcatheter aortic valve replacement in October 2013 with significant improvement in her overall symptoms. She had one nodule which was suspicious for a carcinoma in situ, but observation was planned. She did have a more dominant nodule that began growing in the right mid lung zone. She was not a surgical candidate and did not wish to pursue biopsies. She was referred to Radiation Oncology and SBRT was utilized. PET scan, 09/20/2018, revealed no evidence of recurrence with decrease in pulmonary nodule size. Unfortunately, she developed a metastasis in the right femur and underwent prophylactic fixation on 03/14/2019. She was discharged from the hospital on 03/24/2019 to [facility] for rehab, but was readmitted to the hospital on 04/10/2019 with increasing shortness of breath. She had new bilateral effusions, right greater than left. She is noted to be in atrial fibrillation with rapid ventricular response. She did undergo an ultrasound thoracentesis with 1 L of fluid removed. No chemistries can be identified, but cytology is pending. She continues to be short of breath. PAST MEDICAL HISTORY: 1. Metastatic lung cancer, as per above. 2. Transcatheter aortic valve replacement, as per above. 3. History of coronary artery disease, with conservative management. 4. Hypertension. 5. Dyslipidemia. 6. Prior CVA with residual left upper extremity weakness. SOCIAL HISTORY: Prior tobacco use history. She has attentive family. FAMILY HISTORY: Noncontributory to current presentation. REVIEW OF SYSTEMS: Notable for generalized weakness and shortness of breath and productive cough. PHYSICAL EXAMINATION: General: Examination reveals a frail white female who is awake, alert, and conversant. Vital signs: Blood pressure 150/59, heart rate 89, respiratory rate 21, oxygen saturation 94%. HEENT: Pupils are equal and reactive. Oropharynx is clear. Neck: Supple. Chest: Reveals decreased breath sounds, right greater than left base. Cardiac: S1, S2. Abdomen: Soft. Extremities: Without edema. LABORATORIES: ProBNP is elevated at 4019. Sodium 128, potassium 3.2, chloride 85, bicarbonate 30, BUN 11, creatinine 0.6. CT scan of the thorax is reviewed and reveals marked cardiomegaly, post radiation changes in the right mid lung zone, right greater than left pleural effusion. Arterial blood gas on 2 L reveals pH 7.55, pCO2 of 37, pO2 of 84. IMPRESSION: An 83-year-old with severe combined heart and lung disease, stage IV lung cancer, pleural effusion, dyspnea at rest, with decreasing performance status. The patient's prognosis is poor. The patient is unlikely to survive 6 months and is clearly a candidate for hospice. She has expressed wishes of comfort measures, but this will need to be further clarified with the patient and her family. I do not think she has significant rehab potential and will likely return to the hospital if she were placed back in a rehab stay. The patient is not certain that she had significant improvement with thoracentesis. This could be repeated, but will likely be of limited benefit. RECOMMENDATION: 1. Continue bronchodilators. 2. Continue oxygen for hypoxemic respiratory failure. 3. Cycle BiPAP as needed for comfort. 4. Ongoing end of life discussions. I believe her journey is almost complete. cc: Jordy Ozuna MD
[2019-04-16] MEDS: MAXIPIME 1 GM in NS 50 ML IV SCH ×2 (03:36→16:01)
[2019-04-16] MEDS: ATROVENT NEB INH SCH ×6 (03:43→23:35)
[2019-04-16] MEDS: CARDIZEM 100 MG/NS 100 MG/100 ML IVPB IV SCH ×2 (03:53→23:58)
--- NOTE | 2019-04-16 04:00 | PROGRESS NOTE ---
DATE: 04/15/2019 SUBJECTIVE: The patient is resting comfortably in bed. She complains of a productive cough and states that she feels short of breath. OBJECTIVE: Vital Signs: Temperature 98.6 degrees, blood pressure 132/66, heart rate 86, respirations 32, O2 saturation 94% on 2 L nasal cannula. Intake 1.8 L, output 500. General: This is a chronically ill-appearing elderly female, lying in bed in no acute distress. Heart: S1, S2 normal, regular rate and rhythm. Lungs: Diminished breath sounds at the bases. No wheezing. Abdomen: Positive bowel sounds. Soft, nontender, nondistended. Extremities: No edema, no cyanosis. No calf tenderness. Neurologic: The patient is alert and oriented x4. DIAGNOSTIC STUDIES: Sodium 128, potassium 3.2, chloride 85, CO2 of 30, BUN 11, creatinine 0.6, glucose 147, AST 10, ALT 5. ASSESSMENT AND PLAN: 1. Chronic hypoxemic respiratory failure. Multifactorial. The patient has metastatic lung cancer, pleural effusions, and pulmonary edema. 2. Suspected malignant bilateral pleural effusions. These are likely malignant in nature, given the patient's metastatic lung cancer. The mobility scooter repairer and jr. systems administrator have recommended hospice for the patient. We will consult with Palliative Care to assist with the transition to hospice care. 3. Metastatic lung cancer. Aware. 4. Hypokalemia. We will replace the patient's potassium. 5. Hyponatremia. We will monitor closely. 6. Hypomagnesemia. We will replace the patient's magnesium. DISPOSITION: The patient is currently a DNR level 1. Palliative Care has been consulted for assistance with goals of care. cc: Sabrina Magana MD [facility]
[2019-04-16] MEDS: LOPRESSOR PO SCH ×4 (05:30→23:56)
[2019-04-16] MEDS: LASIX IV SCH ×2 (05:30→17:54)
[2019-04-16 05:48] LABS: MCH 27.1 PG (27-31); MCHC 32.1 g/dL (33-37); MCV 84.3 FL (81-99); MPV 9.3 FL (7.4-10.4); RBC 3.32 XMIL (4.2-5.4); WBC 10.12 X1000 (4.8-10.8)
[2019-04-16 06:01] LABS: MAGNESIUM 1.8 mg/dL (1.5-2.7); PHOSPHORUS 2.3 mg/dL (2.7-4.5)
[2019-04-16 06:17] LABS: ESTIMATED GFR > 60
[2019-04-16] MEDS: HUMALOG SUBQ SCH ×2 (06:26→10:49)
[2019-04-16 06:44] LABS: AGAP 12; BUN 11 mg/dL (8-22); CALCIUM 7.6 mg/dL (8.8-10.2); CHLORIDE 89 mmol/L (98-107); COSMO 264; CREATININE 0.4 mg/dL (0.5-0.9); GLUCOSE 135 mg/dL (70-104); POTASSIUM 3.2 mmol/L (3.5-5.1); SODIUM 131 mmol/L (136-145); TCO2 30 mmol/L (25-35)
[2019-04-16] MEDS ORDERED: POTASSIUM CHLORIDE 20% LIQUID PO ONE (07:22)
--- NOTE | 2019-04-16 07:34 | Diag Imaging Result Doc PS360 ---
EXAM: CHEST-1 VIEW HISTORY: pneumonia/pleural effusions TECHNIQUE: Single view COMPARISON: 04/15/2019 FINDINGS: There are small bilateral pleural effusions. The heart remains enlarged and there is pulmonary edema. Worsening atelectasis and/or infiltrate in the left base. IMPRESSION: Mild interval worsening. Electronically signed by Tyson Velasquez 04/16/2019 7:32 AM
[2019-04-16] MEDS: MUCOMYST 20% INH SCH ×2 (08:19→19:35)
[2019-04-16] MEDS: LOPRESSOR IV PRN (14:51)
[2019-04-16] MEDS: HUMULIN R SUBQ SCH ×2 (16:01→20:27)
[2019-04-16] MEDS ORDERED: SODIUM PHOSPHATE 30 MMOL in NS 250 ML IV ONE (16:04)
--- NOTE | 2019-04-16 16:26 | PROGRESS NOTE ---
DATE: 04/16/2019 SUBJECTIVE: The patient is resting comfortably in bed. She complains of a productive cough. No acute events noted overnight. OBJECTIVE: Vital Signs: Temperature 98.5 degrees, blood pressure 169/81, heart rate 96, respirations 23, and O2 saturation 94% on 2 L nasal cannula. General: This is an elderly female lying in bed in no acute distress. Heart: S1, S2 normal. Tachycardic. Lungs: Coarse breath sounds bilaterally. Abdomen: Positive bowel sounds. Soft, nontender, nondistended. Extremities: No edema. No cyanosis. Neurologic: The patient is alert and oriented x4. LABORATORY: Hemoglobin 9, hematocrit 28, and platelets 266,000. Sodium 131, potassium 3.2, chloride 89, CO2 30, BUN 11, creatinine 0.4, phosphorus 2.3, and magnesium 1.8. Chest x-ray shows worsening of the infiltrate in the left base. ASSESSMENT AND PLAN: 1. Chronic hypoxemic respiratory failure. Multifactorial. Continue with the current treatment regimen. 2. Atrial fibrillation. The patient is currently on a Cardizem drip. Management as per the editorial manager. 3. Hypokalemia. We will replace the patient's potassium. 4. Pulmonary edema. Continue with diuretic therapy. 5. Suspected malignant bilateral pleural effusions. Aware. The patient is currently on diuretic therapy. 6. Metastatic lung cancer. I discussed hospice with the patient this morning. We have placed a consult with Cyndee with Palliative Care to discuss goals of care and transition to hospice. 7. Hypophosphatemia. We will replace the patient's phosphorus. 8. Hyponatremia. Unchanged. We will continue to monitor closely. 9. Disposition. The patient is currently a DNR level 1. Palliative Care will be meeting with the patient to discuss goals of care. cc: Sabrina Magana MD MTDD
[2019-04-16] MEDS: ATIVAN IV PRN (16:47)
[2019-04-16] MEDS ORDERED: LASIX 120 MG in NS 25 ML IV ONE (20:00)
[2019-04-16] MEDS: VANCOMYCIN 1 GM/NS 1 GM/250 ML IVPB IV SCH (20:14)
--- NOTE | 2019-04-16 20:15 | PULMONOLOGY PROGRESS NOTE ---
DATE: 04/16/2019 SUBJECTIVE: The patient is awake and alert. She reports she has minimal appetite. She has shortness of breath with any movement. OBJECTIVE: Vital Signs: The patient has been afebrile for the last 24 hours. Blood pressure 136/97, heart rate 88, respiratory rate 34, oxygen saturation 96%. HEENT: Pupils are equal and reactive. Oropharynx appears clear. Neck: Is supple. Chest: Reveals decreased breath sounds at right base with scattered rhonchi. Cardiac exam: S1, S2. Irregular rhythm. Abdomen: Is soft. Extremities: Reveal trace edema. LABORATORIES: Chest x-ray reveals worsening infiltrate/atelectasis at the left base, she has bilateral effusions and cardiomegaly with pulmonary edema. IMPRESSION: An 83-year-old with 1. Stage IV lung cancer. 2. Severe combined heart and lung disease. 3. Dyspnea at rest. 4. Prior stroke. 5. Decreasing performance status. DISCUSSION: An 83-year-old with problems as outlined above. The patient has been sent to rehabilitation only to return back to the hospital with decompensation. With the patient's age, comorbidities, and stage IV lung cancer, her prognosis is poor. She will be difficult to put through rehab and it isn't anticipated that she would not have a prolonged benefit from rehab. I have discussed rehab and hospice with this family and they will discuss this later with the palliative care nurse. PLAN: 1. Continue bronchodilators. 2. Continue oxygen. 3. Cycle BiPAP for comfort. 4. Extra dose of Lasix today. 5. Ongoing end-of-life care planning. cc: Jordy Ozuna MD
[2019-04-16] MEDS ORDERED: LASIX IV ONE (21:00)
[2019-04-16] MEDS: LOVENOX SUBQ SCH (21:32)
[2019-04-17] MEDS: MAXIPIME 1 GM in NS 50 ML IV SCH ×2 (03:40→16:50)
[2019-04-17] MEDS: ATROVENT NEB INH SCH ×6 (04:14→23:36)
[2019-04-17] MEDS: LASIX IV SCH ×2 (05:26→17:29)
[2019-04-17 05:27] LABS: HEMATOCRIT 32.2 % (37.0-47.0); HEMOGLOBIN 10.1 g/dL (12.0-16.0); MCHC 31.4 g/dL (33-37); MCV 86.1 FL (81-99); MPV 10.1 FL (7.4-10.4); RBC 3.74 XMIL (4.2-5.4); RDW 15.2 % (11.5-14.5); WBC 9.88 X1000 (4.8-10.8)
[2019-04-17] MEDS: LOPRESSOR PO SCH ×3 (05:30→17:30)
[2019-04-17 05:45] LABS: AGAP 14; BUN 11 mg/dL (8-22); CALCIUM 8.9 mg/dL (8.8-10.2); CHLORIDE 88 mmol/L (98-107); COSMO 270; CREATININE 0.5 mg/dL (0.5-0.9); ESTIMATED GFR > 60; GLUCOSE 136 mg/dL (70-104); MAGNESIUM 1.7 mg/dL (1.5-2.7); PHOSPHORUS 3.3 mg/dL (2.7-4.5); POTASSIUM 3.5 mmol/L (3.5-5.1); SODIUM 134 mmol/L (136-145); TCO2 32 mmol/L (25-35)
[2019-04-17] MEDS: HUMULIN R SUBQ SCH ×4 (06:07→20:58)
--- NOTE | 2019-04-17 07:30 | Diag Imaging Result Doc PS360 ---
EXAM: CHEST-1 VIEW INDICATION: pulmonary edema/effusions TECHNIQUE: One view COMPARISON: 04/16/2019 FINDINGS: Dense consolidation in the right midlung zone is unchanged. The milder left basilar consolidation is also approximately stable. There is suggestion of small pleural effusions that are unchanged. No new consolidation is identified. Cardiac silhouette is stable. IMPRESSION: Essentially stable chest. Electronically signed by Prieto Olmos 04/17/2019 7:27 AM
[2019-04-17] MEDS: MUCOMYST 20% INH SCH ×2 (08:17→21:00)
--- NOTE | 2019-04-17 10:16 | PROGRESS NOTE ---
DATE: 04/17/2019 SUBJECTIVE: The patient is resting comfortably in bed. She complains of a productive cough with brownish-colored sputum. She states that she has no appetite and has not been eating. OBJECTIVE: Vital Signs: Temperature 98.2 degrees, blood pressure 128/90, heart rate 99, respirations 23, O2 saturation is 96% on 2 L nasal cannula. Intake 1.3 L, output 765. General: This is a chronically ill-appearing, elderly female sitting up in bed in no acute distress. Heart: S1, S2 normal. Irregularly irregular rhythm. Lungs: Coarse breath sounds bilaterally. Diminished breath sounds at the bases. Abdomen: Positive bowel sounds. Soft, nontender, nondistended. Extremities: No edema, no cyanosis, no calf tenderness. Neurologic: The patient is alert and oriented x4. Labs: Hemoglobin 10, hematocrit 32, platelets 269,000. Sodium 134, potassium 3.5, chloride 88, CO2 of 32, BUN 11, creatinine 0.5, glucose 136, magnesium 1.7. Chest x-ray, dense consolidation in the right mid lung. Small pleural effusions. ASSESSMENT AND PLAN: 1. Chronic hypoxemic respiratory failure. Multifactorial. 2. Pulmonary edema with bilateral pleural effusions. The patient is on diuretic therapy. 3. Atrial fibrillation. Hopefully, the patient can be weaned off of the Cardizem drip. Management as per the sumo wrestler. 4. Metastatic lung cancer. Aware. 5. Hyponatremia. Improved. 6. Protein calorie malnutrition. We will consult with the dietitian. The patient declined any appetite stimulants at this time. 7. Deep vein thrombosis prophylaxis. Continue on Lovenox. 8. Disposition. The patient states that she is ready to go home and states that she is at peace with her diagnosis. The patient and her family will be meeting with palliative care today to discuss transition to hospice. cc: Sabrina Magana MD
[2019-04-17] MEDS: LEVEMIR SUBQ SCH (10:42)
[2019-04-17] MEDS ORDERED: INSULIN PEN NEEDLES ONE (10:45)
[2019-04-17] MEDS: CARDIZEM PO SCH ×2 (11:45→17:29)
[2019-04-17] MEDS ORDERED: VANCOMYCIN 1 GM/NS 1 GM/250 ML IVPB IV SCH (18:30)
[2019-04-17] MEDS ORDERED: ATIVAN IV PRN (18:34)
--- NOTE | 2019-04-17 19:42 | PULMONOLOGY PROGRESS NOTE ---
DATE: 04/17/2019 SUBJECTIVE: The patient reports her day has not been bad, but it has not been good. She did receive 1 mg of Ativan yesterday, which made her sleep for a prolonged period of time. OBJECTIVE: Vital Signs: Blood pressure 132/77, heart rate 86, respiratory rate 15, oxygen saturation 97% on 2 L per nasal cannula. HEENT: Pupils are equal and reactive. Oropharynx appears clear. Neck: Supple. Chest: Diminished breath sounds, right greater than left base. Cardiac: S1, S2. Abdomen: Soft. Extremities: Without edema. LABORATORY AND DIAGNOSTIC DATA: White blood count 9.88, hemoglobin 10.1, platelet count 269,000. Sodium 134, potassium 3.5, chloride 88, bicarbonate 32, BUN 11, creatinine 0.5. Chest x-ray reveals consolidation in the right mid lung zone with small bilateral effusions and cardiomegaly. IMPRESSION: An 83-year-old with: 1. Stage IV lung cancer. 2. Severe combined heart and lung disease. 3. Dyspnea. 4. Stroke. 5. Decreasing performance status. DISCUSSION: An 83-year-old with problems outlined above. The patient is aware that she is unlikely to significantly improve. She has elected to go home for hospice and comfort measures. PLAN: 1. Continue bronchodilators. 2. Discontinue antibiotics. She has completed a seven-day course. 3. Anticipate transfer to the floor and discharge to hospice tomorrow. cc: Jordy Ozuna MD
[2019-04-17] MEDS: LOVENOX SUBQ SCH (21:10)
[2019-04-18] MEDS: CARDIZEM PO SCH ×4 (00:30→17:29)
[2019-04-18] MEDS: LOPRESSOR PO SCH ×4 (00:30→17:29)
[2019-04-18] MEDS: ATROVENT NEB INH SCH ×4 (04:24→15:17)
[2019-04-18] MEDS: HUMULIN R SUBQ SCH ×3 (06:12→17:32)
[2019-04-18] MEDS: LASIX IV SCH ×2 (06:53→17:32)
[2019-04-18 07:20] LABS: ESTIMATED GFR > 60
[2019-04-18] MEDS: MUCOMYST 20% INH SCH (07:32)
[2019-04-18 07:49] LABS: AGAP 13; BUN 11 mg/dL (8-22); CALCIUM 8.9 mg/dL (8.8-10.2); CHLORIDE 89 mmol/L (98-107); COSMO 272; CREATININE 0.5 mg/dL (0.5-0.9); GLUCOSE 115 mg/dL (70-104); POTASSIUM 3.7 mmol/L (3.5-5.1); SODIUM 136 mmol/L (136-145); TCO2 34 mmol/L (25-35)
[2019-04-18] MEDS: LEVEMIR SUBQ SCH (09:39)
[2019-04-18] MEDS ORDERED: ATIVAN PO PRN (10:12)
[2019-04-18] MEDS ORDERED: NORCO-7.5 PO PRN (10:12)
[2019-04-18 15:41] VITALS: BP 146/82
[2019-04-18] MEDS ORDERED: GLUCOPHAGE PO SCH (17:00)
--- NOTE | 2019-04-27 10:49 | DISCHARGE SUMMARY ---
ADMISSION DATE: 04/10/2019 DISCHARGE DATE: 04/18/2019 FINAL DISCHARGE DIAGNOSES: 1. Chronic hypoxemic respiratory failure. 2. Pulmonary edema. 3. Bilateral pleural effusions. 4. Metastatic lung cancer. 5. Atrial fibrillation. 6. Hyponatremia. 7. Severe protein calorie malnutrition. CONSULTATIONS: 1. Pulmonary consultation with Dr. Ozuna. 2. Cardiology consultation with Dr. Holman. HOSPITAL COURSE: Ms. Branham is an 83-year-old female with a history of metastatic lung cancer who presented to the ER with a chief complaint of shortness of breath. On admission, a CT of the chest was done which revealed moderate right pleural effusion and a small left pleural effusion as well as worsening opacification of the right lung base as well as a right hilar mass. The patient was admitted to the ICU into the hospitalist service. On admission, the patient was noted to have a moderate pericardial effusion that was seen on the CT of the thorax. Pulmonary medicine was consulted as well as Cardiology. An echocardiogram was done to follow up on the CT results, which confirmed that the patient did have a medium-sized pericardial effusion that appeared to be loculated. The patient was started on a Cardizem drip in the ICU under the discretion of the arranging funeral director. The results of the echocardiogram were discussed with the patient and her family. The patient requested to be made a DNR level 1. It was recommended by both the arranging funeral director and the physician non invasive cardiologist that the patient consider hospice care given her poor prognosis in light of the metastatic cancer. The patient discussed the overall prognosis with her family and she decided to undergo hospice care. The patient was transferred to the medical floor. Palliative Care was consulted to assist with transition to home hospice care. The patient during the hospitalization was treated with diuretic therapy and medication for rate control of her atrial fibrillation. The patient did not eat well during the hospitalization and the patient declined any appetite stimulants during her stay. The plan of care was discussed with the patient and her family at great length, and they decided that they wanted [facility] hosp[facility] care for the patient upon discharge. The patient was ultimately discharged home with hospice on 04/18/2019. cc: Sabrnia Magana MD
== END 2019-04-18 17:34 | disposition hospice, home (50) | DRG 291 ==
LOC: SUPCPDRO → ED 23:27 → EDIPHOLD 04-10 04:56 → SUATTDRO 04-10 04:56 → ICU 04-10 08:15 → 3N 04-17 20:40
PROVIDERS: ATTEND Internal Medicine